=== PATIENT | female | born 1935 | race Caucasian/White ===

== ENCOUNTER → 2016-07-09 | Outpatient (CLI) | payer OTHER, MEDICARE ==
[~2016-07-09] MED LIST: ASPI81TA28 PO; CALCTAB7 PO; FOLI800T PO; LORA-741 PO; LOSA1TAB38 PO; SIMV-150 PO; TRAM-10 PO
== END | disposition home or self-care (01) ==
LOC: C.PATHSPEC 14:47
PROVIDERS: ATTEND Dentist Oral and Maxillofacial Surgery
DX: K13.79 Other lesions of oral mucosa (principal)

== ENCOUNTER → 2016-08-27 | Outpatient (CLI) | payer OTHER, MEDICARE ==
[~2016-08-27] MED LIST changes: +OPTIRAY 320 IV PRN
[2016-08-27 09:37] LABS: BLOOD UREA NITROGEN 27 mg/dl (7-18)
--- NOTE | 2016-08-27 10:45 | DIAGNOSTIC IMAGING REPORT ---
ABDOMEN AND PELVIS CT WITH IV AND ORAL CONTRAST CT DOSE: HISTORY: LUNG CANCER F/U TO HAVE LABS BEFORE CT FROM . TECHNIQUE: Multiaxial CT images of the abdomen and pelvis were performed following the use of intravenous and oral contrast. COMPARISON STUDY: Abdomen and pelvis CT 05/13/2016. FINDINGS: There is suture material again noted at the left lung base. This is only partially visualized. Levoscoliosis and degenerative changes within the lumbar spine. Left-sided postthoracotomy changes noted within the ribs. No suspicious lytic or blastic osseous lesions. The liver, gallbladder, pancreas, spleen, and adrenal glands are unremarkable. The kidneys enhance normally. No retroperitoneal lymphadenopathy. Mild bladder wall thickening is likely due to underdistention. The uterus and ovaries are unremarkable. Colonic diverticulosis. Mild sigmoid colon thickening is likely due to muscular hypertrophy. No evidence for bowel obstruction. Normal appendix. IMPRESSION: No evidence for metastatic disease within the abdomen or pelvis. Electronically signed by: Dexter Pacheco M.D. 08/27/2016 10:43 AM Dictated Date/Time: 08/27/2016 10:38 AM
--- NOTE | 2016-08-27 11:30 | DIAGNOSTIC IMAGING REPORT ---
CHEST CT WITH CONTRAST CT DOSE: 459.55 mGycm HISTORY: Lung carcinoma LUNG CANCER F/U TECHNIQUE: Multiaxial CT images of the chest were performed following the intravenous administration of contrast. COMPARISON: 05/13/2016 Findings: Slight progression in findings as compared to the prior exam. Multifocal masslike changes are again noted. Within the left lung, of the dominant process superior segment left lower lobe is unchanged. Poorly defined parenchymal changes left midlung as well as a groundglass opacity of the left perihilar region are considered similar. Fibrotic changes left lung base are similar. The right hemithoracic findings are perhaps minimally progressive. A bilobed density of the right upper lobe currently measures 2.4 cm at maximum increase in the prior study of 2.1 cm. The remaining findings are considered similar. Parenchymal findings right apex are similar as well with multifocal areas of irregular density unchanged. Atherosclerotic change thoracic aorta with moderate ectasia of the root of aorta is similar. No significant hilar or mediastinal adenopathy. Limited evaluation the upper abdomen remains stable. IMPRESSION: 1. General stability of the multifocal pulmonary masses compared to the prior study. 2. Slight increase in volume of a anterior right midlung density. 3. No additional significant new or interval changes are noted. Electronically signed by: Rudy Arteaga M.D. 08/27/2016 11:28 AM Dictated Date/Time: 08/27/2016 11:07 AM
== END | disposition home or self-care (01) ==
LOC: C.CTS 08:22
PROVIDERS: ATTEND Internal Medicine Hematology & Oncology
DX: C34.82 Malignant neoplasm of overlapping sites of left bronchus and lung (principal)

== ENCOUNTER → 2016-11-24 | Outpatient (CLI) | payer OTHER, MEDICARE ==
[~2016-11-24] MED LIST changes: -OPTIRAY 320 IV PRN
[2016-11-24 15:33] LABS: CHOLESTEROL/HDL RATIO 2.2
== END | disposition home or self-care (01) ==
LOC: C.LAB 11:48
PROVIDERS: ATTEND Internal Medicine
DX: E78.00 Pure hypercholesterolemia, unspecified (principal); C34.90 Malignant neoplasm of unspecified part of unspecified bronchus or lung

== ENCOUNTER → 2016-11-25 | Outpatient (CLI) | payer OTHER, MEDICARE ==
--- NOTE | 2016-11-25 11:11 | DIAGNOSTIC IMAGING REPORT ---
CHEST CT WITH CONTRAST CT DOSE: 454.00 mGy.cm HISTORY: Lung carcinoma [id number] LUNG CARCINOMA C34.82 TECHNIQUE: Multiaxial CT images of the chest were performed following the intravenous administration of contrast. COMPARISON: 08/27/2016 FINDINGS: Multiple pulmonary nodules as well as pleural-based densities previously described have remained generally stable. Subtle variation in configuration is present although overall widening factors are unchanged. There are no new or interval nodular findings. There is no significant mediastinal or hilar adenopathy. Degenerative changes of the thoracic spine persist. IMPRESSION: 1. Unchanged CT of the chest compared to the prior study. 2. Pulmonary nodules, pleural-based masses, and other incidental findings appear stable. Electronically signed by: Rudy Arteaga M.D. 11/25/2016 11:10 AM Dictated Date/Time: 11/25/2016 11:04 AM
--- NOTE | 2016-11-25 11:29 | DIAGNOSTIC IMAGING REPORT ---
CT SCAN OF THE ABDOMEN AND PELVIS WITH IV CONTRAST CLINICAL HISTORY: Lung cancer. COMPARISON STUDY: Prior abdominal CT scans, most recently dated 08/27/2016. TECHNIQUE: Following the IV administration of 94 cc of Optiray 320, CT scan of the abdomen and pelvis is performed from the lung bases to the proximal femora. Images are reviewed in the axial, sagittal, and coronal planes. IV contrast was administered without complication. Automated dose control exposure was utilized. FINDINGS: Lung bases: The tip of a central venous infusion port is noted at the cavoatrial junction. The heart is normal in size and without pericardial effusion. Suture material is seen at the left lung base. A 2.3 cm irregular lesion in the right middle lobe as seen on image #1. Additional subcentimeter foci of groundglass change are present in the right lower lobe. No pleural effusion is identified. Liver: The contrast-enhanced liver is normal in size, contour, and attenuation. There is no intrahepatic biliary ductal dilatation. The hepatic veins and portal veins are patent. Gallbladder: Unremarkable. Spleen: Normal in size and attenuation. Pancreas: Unremarkable. Adrenal glands: Unremarkable. Kidneys: The contrast enhanced kidneys are atrophic and without hydronephrosis. Bilateral parapelvic cysts are again noted. The kidneys enhance symmetrically. Abdominal vasculature: The abdominal aorta is normal in course and caliber noting advanced atherosclerotic calcification. A focal dissection is suggested within the infrarenal abdominal aorta on image #139. Bowel: The small bowel and colon are normal in course and caliber. There is advanced sigmoid diverticulosis without CT evidence of acute diverticulitis. The appendix is not identified. Peritoneum: There is no intraperitoneal free air or abdominal ascites. Lymphadenopathy: None. Pelvic viscera: The bladder, uterus, and adnexa are normal as visualized. Findings suggest pelvic floor prolapse. Skeletal structures: The skeletal structures are osteopenic. There is moderate lumbosacral spondylosis and scoliosis. No lytic or blastic lesions are seen. There are healed left-sided rib fractures. IMPRESSION: 1. There is no evidence of metastatic disease in the abdomen or pelvis. 2. Postoperative change is seen at the left lung base. 3. There are no acute infectious or inflammatory findings in the abdomen or pelvis. 4. Advanced sigmoid diverticulosis without CT evidence of acute diverticulitis. 5. A 2.3 cm irregular lesion in the right middle lobe is partially imaged. This was also seen on prior studies. See report of chest CT performed concurrently for detailed intrathoracic findings. 6. A focal dissection is suspected in the infrarenal abdominal aorta. 7. Additional changes as above. Electronically signed by: Adithya Eli M.D. 11/25/2016 11:28 AM Dictated Date/Time: 11/25/2016 11:19 AM
== END | disposition home or self-care (01) ==
LOC: C.CTS 10:22
PROVIDERS: ATTEND Internal Medicine Hematology & Oncology
DX: C34.82 Malignant neoplasm of overlapping sites of left bronchus and lung (principal)

== ENCOUNTER → 2017-02-24 | Outpatient (CLI) | payer OTHER, MEDICARE ==
[~2017-02-24] MED LIST changes: +OPTIRAY 320 IV PRN
--- NOTE | 2017-02-24 11:17 | DIAGNOSTIC IMAGING REPORT ---
ABD/PELVIS IV AND ORAL CONT CT DOSE: 441.98 mGy.cm HISTORY: Lung carcinoma. LUNG CA TECHNIQUE: Multiaxial CT images of the abdomen and pelvis were performed following the use of intravenous and oral contrast. A dose lowering technique was utilized adhering to the principles of ALARA. COMPARISON STUDY: 11/25/2016 FINDINGS: Minimal scattered fibrotic change at both lung bases. Components of this per history are postoperative and is considered stable. Liver is uniform in appearance. Gallbladder is negative for distention. Moderate atrophy of the kidneys is stable. No evidence for renal hydronephrosis. No significant abdominal pelvic or inguinal adenopathy. Chronic sigmoid diverticulosis. No evidence for acute diverticulitis. Nonobstructive bowel pattern. The small focal dissection present described is not apparent currently. Her considerable degenerative changes of the low thoracic as well as lumbar spine. No lytic or blastic process is appreciated. IMPRESSION: 1. No evidence for metastatic disease. 2. Chronic sigmoid diverticulosis with no evidence for diverticulitis. 3. Mild stable renal atrophy The above report was generated using voice recognition software. It may contain grammatical, syntax or spelling errors. Electronically signed by: Rudy Arteaga M.D. 02/24/2017 11:16 AM Dictated Date/Time: 02/24/2017 11:07 AM
--- NOTE | 2017-02-24 11:34 | DIAGNOSTIC IMAGING REPORT ---
CT SCAN OF THE CHEST WITH IV CONTRAST CLINICAL HISTORY: Lung cancer. COMPARISON STUDY: Prior chest CT scans dated 11/25/2016 and 08/02/2015. TECHNIQUE: Following the IV administration of 94 cc of Optiray 320, CT scan of the thorax was performed from the thoracic inlet to the upper abdomen. Images are reviewed in the axial, sagittal, and coronal planes. IV contrast was administered without complication. A dose lowering technique was utilized adhering to the principles of ALARA. FINDINGS: Thyroid: Imaged portions of the thyroid gland are normal in size and attenuation. Subcentimeter low-attenuation thyroid nodules are identified. Thoracic aorta: There is atherosclerotic calcification of the thoracic aorta, which is normal in caliber and demonstrates bovine variant arch anatomy. No dissection is seen. A left subclavian central venous infusion port is in place. Pulmonary vasculature: The pulmonary trunk is normal in caliber. There are no filling defects identified in the central pulmonary vessels to indicate pulmonary embolus. Note that this examination was not protocoled for evaluation of the pulmonary arteries. Heart: The heart is top normal in size and without pericardial effusion. There are coronary artery calcifications. Lungs and pleural spaces: Mild emphysema and biapical scarring is observed. The trachea and central airways are patent. Trace pleural fluid is seen at the left lung base. There is postoperative change in the left upper and left lower lobes. Numerous bilateral pulmonary lesions have not significant change from 11/25/2016. A pleural-based lesion in the left upper lobe on image #68 measures 3.8 x 1.9 cm. A 4.2 cm lesion in the left upper lobe lung the major fissure is single image #111 and demonstrates foci of central necrosis. The largest lesion in the right lung is located in the upper lobe anteriorly on image #108 and measures 2.7 cm. Numerous (greater than 10) additional irregular pulmonary lesions are scattered throughout both lungs. Mediastinum: There is no mediastinal lymphadenopathy. Ashley: Clear. Axillae: There is no axillary lymphadenopathy. Upper abdomen: The partially visualized kidneys demonstrate cortical atrophy. No adrenal lesion is seen. Skeletal structures: The skeletal structures are osteopenic. There is moderate degenerative change as well as scoliosis noted in the spine. No lytic or blastic bony lesions are seen. IMPRESSION: 1. Overall no significant change from 11/25/2016. 2. Numerous pulmonary lesions are again seen as detailed above. 3. Mild emphysema. 4. No mediastinal lymphadenopathy is identified. 5. Additional findings as above. Electronically signed by: Adithya Eli M.D. 02/24/2017 11:33 AM Dictated Date/Time: 02/24/2017 11:26 AM
== END | disposition home or self-care (01) ==
LOC: C.CTS 10:23
PROVIDERS: ATTEND Internal Medicine Hematology & Oncology
DX: C34.82 Malignant neoplasm of overlapping sites of left bronchus and lung (principal); K57.30 Diverticulosis of large intestine without perforation or abscess without bleeding; N26.1 Atrophy of kidney (terminal); R91.8 Other nonspecific abnormal finding of lung field; J43.9 Emphysema, unspecified

== ENCOUNTER → 2017-06-09 | Outpatient (CLI) | payer OTHER, MEDICARE ==
--- NOTE | 2017-06-09 12:48 | DIAGNOSTIC IMAGING REPORT ---
ABD/PELVIS IV CONTRAST ONLY CT DOSE: HISTORY: Lung carcinoma LUNG CA TECHNIQUE: Multiaxial CT images of the abdomen and pelvis were performed following the use of intravenous contrast. A dose lowering technique was utilized adhering to the principles of ALARA. COMPARISON STUDY: 02/24/2017 FINDINGS: Lung bases are considered clear. Minimal linear scarring and chronic granulomatous-type change left base is unaltered. Mild fatty infiltration of liver stable from the prior exam. Cortical scarring of the kidneys considered stable. No evidence for hydronephrosis. Atherosclerotic change of the abdominal and pelvic arterial vasculature is stable. No significant abdominal or pelvic adenopathy. Bowel pattern is nonobstructive. Mild chronic diverticulosis of the sigmoid considered stable. No evidence for acute diverticulitis. Bladder is midline. Uterus is anteflexed. Degenerative changes of the osseous structures are stable throughout. IMPRESSION: 1. No evidence metastatic disease. 2. Scattered chronic changes unaltered from the prior study. 3. No evidence for new interval or progressive process. The above report was generated using voice recognition software. It may contain grammatical, syntax or spelling errors. Electronically signed by: Rudy Arteaga M.D. 06/09/2017 12:47 PM Dictated Date/Time: 06/09/2017 12:41 PM
--- NOTE | 2017-06-09 12:53 | DIAGNOSTIC IMAGING REPORT ---
CT OF THE CHEST WITH IV CONTRAST CLINICAL HISTORY: LUNG CA COMPARISON STUDY: 02/24/2017 TECHNIQUE: Following the IV administration of 94 mL of Optiray-320, CT of the thorax was performed from the thoracic inlet to the lung bases. Images are reviewed in the axial, sagittal, and coronal planes. IV contrast was administered without complication. A dose lowering technique was utilized adhering to the principles of ALARA. CT DOSE: 472.11 mGy.cm FINDINGS: Thyroid: There are bilateral subcentimeter thyroid nodules. Thoracic aorta: The thoracic aorta is normal in course and caliber, noting standard 3-vessel arch anatomy. No aneurysm or dissection is seen. Pulmonary vasculature: The pulmonary trunk is normal in caliber. There are no central filling defects identified to suggest pulmonary embolus. Note that this examination was not protocoled for the evaluation of pulmonary emboli. HEART: The heart is normal in size and configuration, without pericardial effusion. Lungs and pleural spaces: There are no pleural effusions. Postsurgical changes are present within the left lower lobe and left upper lobe. There are multiple bilateral solid and groundglass pulmonary nodules. Within the left lower lobe, there is an enlarging 17 mm nodule at the level of a surgical scar. Within the lingula there is a stable 41 mm mass. Within the left upper lobe there is a stable 38 mm mass. Within the right upper lobe there has been slight interval increase in the size of a 34 mm mass. Within the right middle lobe there is equivocal minimal increase in the size of a 22 mm lesion within the right lower lobe there is a stable 2 cm groundglass opacity. Mediastinum: There is no mediastinal lymphadenopathy. Ashley: There is no evidence of pathologic hilar adenopathy Axilla: Clear. Upper abdomen: Partially visualized upper abdominal viscera is within normal limits. Skeletal structures: There are no lytic or blastic osseous lesions. IMPRESSION: 1. Multiple bilateral solid and groundglass radiopacities, stable to mildly increased in size when compared the preceding study 2. No evidence of pathologic adenopathy Electronically signed by: Juan Carlos Emery M.D. 06/09/2017 12:51 PM Dictated Date/Time: 06/09/2017 12:43 PM
== END | disposition home or self-care (01) ==
LOC: C.CTS 11:21
PROVIDERS: ATTEND Internal Medicine Hematology & Oncology
DX: C34.82 Malignant neoplasm of overlapping sites of left bronchus and lung (principal)

== ENCOUNTER → 2017-09-08 | Outpatient (CLI) | payer OTHER, MEDICARE ==
[~2017-09-08] MED LIST changes: -OPTIRAY 320 IV PRN
== END | disposition home or self-care (01) ==
LOC: C.LAB 16:07
PROVIDERS: ATTEND Internal Medicine
DX: E78.00 Pure hypercholesterolemia, unspecified (principal); I10 Essential (primary) hypertension

== ENCOUNTER → 2017-10-26 | Outpatient (CLI) | payer OTHER, MEDICARE ==
[2017-10-26 14:44] LABS: BASO % 0.8 %; BASO ABS # 0.06 K/uL (0-0.2); EOS % 2.4 %; EOS ABS # 0.17 K/uL (0-0.5); HEMATOCRIT 34.9 % (37-47); HEMOGLOBIN 11.1 g/dL (12.0-16.0); IG# 0.01 K/uL (0.00-0.02); LYMPH % 25.1 %; LYMPH ABS # 1.78 K/uL (1.2-3.4); MEAN CORPUSCULAR HEMOGLOBIN 28.3 pg (25-34); MEAN CORPUSCULAR HGB CONC 31.8 g/dl (32-36); MEAN PLATELET VOLUME 10.2 fL (7.4-10.4); MONO % 5.6 %; NEUT ABS # 4.68 K/uL (1.4-6.5); PLATELET COUNT 315 K/uL (130-400); RED CELL DISTRIBUTION WIDTH CV 13.6 % (11.5-14.5); RED CELL DISTRIBUTION WIDTH SD 44.4 fL (36.4-46.3)
[2017-10-26 15:01] LABS: ALBUMIN 3.4 gm/dl (3.4-5.0); ALT/SGPT 19 U/L (12-78); AST/SGOT 21 U/L (15-37); BLOOD UREA NITROGEN 38 mg/dl (7-18); CALCIUM 9.6 mg/dl (8.5-10.1); CARBON DIOXIDE 29 mmol/L (21-32); GLUCOSE 147 mg/dl (70-99); POTASSIUM 4.1 mmol/L (3.5-5.1); SODIUM 139 mmol/L (136-145)
[2017-10-26 15:04] LABS: ALKALINE PHOSPHATASE 60 U/L (45-117); TOTAL PROTEIN 7.6 gm/dl (6.4-8.2)
== END | disposition home or self-care (01) ==
LOC: C.LABSPEC 14:11
PROVIDERS: ATTEND Internal Medicine Hematology & Oncology
DX: C34.82 Malignant neoplasm of overlapping sites of left bronchus and lung (principal)

== ENCOUNTER → 2018-01-04 | Outpatient (CLI) | payer OTHER, MEDICARE ==
[2018-01-04 15:10] LABS: BASO % 0.7 %; BASO ABS # 0.05 K/uL (0-0.2); EOS % 2.4 %; EOS ABS # 0.18 K/uL (0-0.5); HEMATOCRIT 34.7 % (37-47); HEMOGLOBIN 10.9 g/dL (12.0-16.0); IG# 0.02 K/uL (0.00-0.02); LYMPH % 22.9 %; LYMPH ABS # 1.71 K/uL (1.2-3.4); MEAN CELL VOLUME 87.8 fL (80-100); MEAN CORPUSCULAR HEMOGLOBIN 27.6 pg (25-34); MEAN CORPUSCULAR HGB CONC 31.4 g/dl (32-36); MEAN PLATELET VOLUME 10.4 fL (7.4-10.4); MONO % 7.9 %; MONO ABS # 0.59 K/uL (0.11-0.59); NEUT % 65.8 %; NEUT ABS # 4.93 K/uL (1.4-6.5); PLATELET COUNT 323 K/uL (130-400); RED CELL DISTRIBUTION WIDTH CV 13.6 % (11.5-14.5); RED CELL DISTRIBUTION WIDTH SD 43.8 fL (36.4-46.3); WHITE BLOOD COUNT 7.48 K/uL (4.8-10.8)
[2018-01-04 15:30] LABS: ALBUMIN 3.1 gm/dl (3.4-5.0); ALT/SGPT 17 U/L (12-78); AST/SGOT 17 U/L (15-37); BLOOD UREA NITROGEN 32 mg/dl (7-18); CALCIUM 8.6 mg/dl (8.5-10.1); CARBON DIOXIDE 25 mmol/L (21-32); CREATININE 1.17 mg/dl (0.60-1.20); GLUCOSE 87 mg/dl (70-99); POTASSIUM 4.2 mmol/L (3.5-5.1); SODIUM 136 mmol/L (136-145)
[2018-01-04 15:38] LABS: ALKALINE PHOSPHATASE 63 U/L (45-117); TOTAL PROTEIN 7.2 gm/dl (6.4-8.2)
== END | disposition home or self-care (01) ==
LOC: C.LABSPEC 14:13
PROVIDERS: ATTEND Internal Medicine Hematology & Oncology
DX: C34.82 Malignant neoplasm of overlapping sites of left bronchus and lung (principal)

== ENCOUNTER → 2018-01-26 | Outpatient (CLI) | payer OTHER, MEDICARE ==
[~2018-01-26] MED LIST changes: +OPTIRAY 320 IV PRN
--- NOTE | 2018-01-26 12:39 | DIAGNOSTIC IMAGING REPORT ---
CT ABD/PELVIS IV AND ORAL CONT CLINICAL HISTORY: LUNG CA COMPARISON STUDY: 11/03/2017 TECHNIQUE: Following the IV administration of 91 mL of Optiray-320, CT scan of the abdomen and pelvis was performed from the lung bases to the proximal femurs. Images are reviewed in the axial, sagittal, and coronal planes. IV contrast was administered without complication. A dose lowering technique was utilized adhering to the principles of ALARA. CT DOSE: FINDINGS: Lower chest: The heart is normal in size and configuration, without pericardial effusion. The lung bases and pleural spaces are clear. Liver: The contrast-enhanced liver is normal in size, contour, and attenuation. There is no intrahepatic biliary ductal dilatation. The hepatic veins and portal veins are patent. Gallbladder: Unremarkable. Spleen: Normal in size and attenuation. Pancreas: Unremarkable. Adrenal glands: Unremarkable. Kidneys: There is symmetric renal cortical enhancement. The kidneys are normal in size without hydronephrosis. Bowel: There are no transition zones indicate bowel obstruction. There is sigmoid diverticulosis. There is no acute diverticulitis. There is no evidence of acute appendicitis. Peritoneum: There is no intraperitoneal free air or abdominal ascites. Vasculature: The abdominal aorta is normal in course and caliber. Adenopathy: None. Pelvic viscera: The bladder, and pelvic viscera are unremarkable. Skeletal structures: No destructive osseous lesions are seen. IMPRESSION: No evidence of metastatic disease within the abdomen or pelvis. Electronically signed by: Juan Carlos Emery M.D. 01/26/2018 12:37 PM Dictated Date/Time: 01/26/2018 12:34 PM
--- NOTE | 2018-01-26 13:20 | DIAGNOSTIC IMAGING REPORT ---
CT OF THE CHEST WITH IV CONTRAST CLINICAL HISTORY: Lung cancer. COMPARISON STUDY: Chest CT November 03, 2017. TECHNIQUE: Following IV administration of 91 mL of Optiray-320, helical axial images of the chest were obtained. Sagittal and coronal reconstructions were viewed as well as maximal intensity projections on an independent 3-D workstation. A dose lowering technique was utilized adhering to the principles of ALARA. CT DOSE: 522.47 mGy.cm FINDINGS: No pathologically enlarged thoracic lymph nodes are present. Left subclavian [id number] is in place. A few subcentimeter thyroid nodules are noted. The heart is mildly enlarged. There is no pericardial effusion. No suspicious osseous lesion within the bony thorax is noted. The abdomen and pelvis will be reported separate. Numerous solid, subsolid and groundglass nodules are noted. These are similar to exam of November 03, 2017. A left upper lobe lesion shown on image 60 of 276 has slightly decreased in size. This now measures 3.7 cm. It previously measured 3.8 cm. Postoperative findings within the lungs are noted. A left upper lobe lesion shown image 102 measures 4.2 cm. This is similar to previous exam. A 1.4 cm left lower lobe lesion shown image 122 has slightly decreased in size. It previously measured 1.5 cm. A right middle lobe lesion shown on image 154 measures 2 cm. It previously measured approximately 2 cm as well. A right upper lobe lesion shown image 104 measures 3.6 cm. This is similar to previous exam. An additional right upper lobe lesion shown image 65 measures 1.9 cm. It previously measured 2.1 cm. IMPRESSION: Overall, minimal change since previous exam with redemonstration of numerous solid and subsolid pulmonary masses and nodules consistent with multifocal malignancy.. A few lesions have slightly decreased in size since chest CT of November 03, 2017. No evidence for significant disease progression. Electronically signed by: Jeff Rivera M.D. 01/26/2018 1:19 PM Dictated Date/Time: 01/26/2018 1:01 PM
== END | disposition home or self-care (01) ==
LOC: C.CTS 11:23
PROVIDERS: ATTEND Internal Medicine Hematology & Oncology
DX: C34.82 Malignant neoplasm of overlapping sites of left bronchus and lung (principal)

== ENCOUNTER 2019-06-21 11:24 | Inpatient (IN) ==
[2019-06-21] MEDS: SODIUM CHLORIDE 0.9% 1000ML 1,000 ML IV SCH ×2 (12:45→20:59)
[2019-06-21 12:49] LABS: Basophils # (auto) 0.02 K/uL (0-0.2); Basophils % (auto) 0.1 %; Eosinophils # (auto) 0.02 K/uL (0-0.5); Eosinophils % (auto) 0.1 %; Hematocrit (blood only) 31.4 % (37-47); Hemoglobin 9.9 g/dL (12.0-16.0); Immature Granulocytes # (auto) 0.07 K/uL (0.00-0.02); Immature Granulocytes % (auto) 0.4 %; Lymphocytes # (auto) 1.02 K/uL (1.2-3.4); Lymphocytes % (auto) 5.6 %; Mean Corpuscular Hemoglobin 26.3 pg (25-34); Mean Corpuscular Hgb Conc 31.5 g/dL (32-36); Mean Corpuscular Volume 83.3 fL (80-100); Mean Platelet Volume 8.6 fL (7.4-10.4); Monocytes # (auto) 1.14 K/uL (0.11-0.59); Monocytes % (auto) 6.3 %; Neutrophils # (auto) 15.97 K/uL (1.4-6.5); Neutrophils % (auto) 87.5 %; Platelet Count 561 K/uL (130-400); RDW Standard Deviation 61.1 fL (36.4-46.3); Red Blood Count 3.77 M/uL (4.2-5.4); White Blood Count 18.24 K/uL (4.8-10.8)
[2019-06-21 13:04] LABS: Influenza A virus by PCR Neg for Influ A (Neg); Influenza B virus by PCR Neg for Influ B (Neg)
[2019-06-21 13:08] LABS: Albumin Level 1.9 gm/dl (3.4-5.0); Aspartate Aminotransferase 27 U/L (15-37); BUN Creatinine Ratio 20.9 (10-20); Blood Urea Nitrogen 24 mg/dl (7-18); Calcium 9.4 mg/dl (8.5-10.1); Carbon Dioxide 28 mmol/L (21-32); Chloride 96 mmol/L (98-107); Glucose 119 mg/dl (70-99); Lipase 230 U/L (73-393); Magnesium 1.9 mg/dl (1.8-2.4); Potassium 4.3 mmol/L (3.5-5.1); Sodium 128 mmol/L (136-145)
[2019-06-21 13:19] LABS: Alanine Aminotransferase 23 U/L (12-78); Albumin Globulin Ratio 0.4 (0.9-2); Alkaline Phosphatase 103 U/L (45-117); Bilirubin,Total 0.4 mg/dl (0.2-1); NT Pro B Type Natriuretic Pept 1769 pg/ml (0-1800); Total Protein 6.9 gm/dl (6.4-8.2); Troponin I < 0.015 ng/ml (0-0.045)
[2019-06-21 13:28] LABS: Rouleaux 1+
[2019-06-21] MEDS ORDERED: OPTIRAY 320 125ml IV PRN (13:54)
[2019-06-21 14:18] LABS: Appearance Urine Clear (Clear); Bacteria Urine Automated Negative (Negative); Bilirubin Urine Negative (Negative); Blood Urine Negative (Negative); Cast Urine Automated 0 /lpf (0-5); Color Urine Yellow; Glucose Urine UA 1+ (Negative); Ketones Urine Negative (Negative); Leukocyte Esterase Urine Trace (Negative); Nitrite Urine Negative (Negative); Protein Urine Negative (Negative); RBC Urine Automated 0-4 /hpf (0-4); Urobilinogen Urine Negative (Negative); pH Urine 7.5 (4.5-7.5)
--- NOTE | 2019-06-21 14:18 | CT Scan Report ---
CT angio chest PE protocol CT DOSE: 242.30 mGy.cm HISTORY: Chest pain PE TECHNIQUE: Multiaxial CT images of the chest were performed following the intravenous administration of contrast to evaluate the pulmonary arteries. Maximal intensity projection images were also obtaine d. A dose lowering technique was utilized adhering to the principles of ALARA. COMPARISON STUDY: 06/15/2018 FINDINGS: The thoracic aorta shows mild atherosclerotic change. There is no evidence for aneurysm or dissection. The pulmonary vasculature enhances appropriately. There are no significant filling defects. There are findings of progressive masslike changes in the right as well as left hemithorax. There is a progressive left pleural effusion. His appearance consistent with that of progressive neoplastic change. The largest consolidative process left mid lung has increased from 5.4 cm to 7.0 cm. Multiple additio nal parenchymal nodules are identified bilaterally. Vertebral body stature of the thoracic spine is unremarkable. There is considerable degenerative disc changes throughout. There is a sclerotic focus involving the anterior margin of the left fourth rib. This was not present previously. IMPRESSION: 1. Study is negative for pulmonary embolus. 2. Progressive bilateral masslike processes throughout both hemithoraces. 3. Progressive left pleural effusion. 4. Probable developing bony metastatic change. ACT 112: Negative or not required by law. The above report was generated using voice recognition software. It may contain grammatical, syntax or spelling errors. Electronically signed by: Rudy Arteaga M.D. 06/21/2019 2:16 PM
--- NOTE | 2019-06-21 14:40 | Electrocardiogram Report ---
Test Reason : Blood Pressure : / mmHG Vent. Rate : 088 BPM Atrial Rate : 088 BPM P-R Int : 132 ms QRS Dur : 074 ms QT Int : 332 ms P-R-T Axes : 059 048 044 degrees QTc Int : 401 ms Poor data quality, interpretation may be adversely affected Normal sinus rhythm Poor R wave progression, consider anterior IN vs. lead placement vs. LVH Abnormal ECG When compared with ECG of 22-MAR-2016 16:26, Loss of voltage in Lead V3 (likely lead placement) Otherwise no significant change Confirmed by Parth Baxter ([id number]) on 06/21/2019 2:40:19 PM Referred By: REFERRED SELF Confirmed By:Parth Baxter
[2019-06-21] MEDS ORDERED: CEFEPIME 20 ML IV STA (14:54)
[2019-06-21] MEDS ORDERED: VANCOMYCIN HCL 1,250 MG in SODIUM CHLORIDE 0.9% 250 ML IV STA (14:55)
--- NOTE | 2019-06-21 17:19 | History & Physical Report ---
Date of Service June 21, 2019 Assessment & Plan (1) Pneumonia: 83-year-old female with a past medical history of metastatic lung cancer, hyperlipidemia, hypertension presents with worsening shortness of breath over the past week. On arrival, she was tachycardic, tachypneic and with a white count of 18.24 and a pro-Liu of 18.89. On CT she was found to have left superior lobe obstructive process and suspected pneumonia, as well as an associated left pleural effusion. On admission, the patient meets sepsis criteria per sirs, but she was in no distress--afebrile and was satting well on room air. Postobstructive process, left superior lobe pneumonia likely In the setting of metastatic lung cancer, with associated pleural effusion Consult thoracic surgery, Dr. Vargas contacted Keep patient n.p.o. after midnight Continue antibioticscefepime, vancomycin. Obtain sputum culture, follow blood cultures. History of non-small carcinoma lung, stage IV Currently not undergoing treatment, but is followed by oncology on Q2 month basis. We will consult them. Hyponatremia Consider SIADH in setting of lung cancer, obtain urine/serum osmolarity, urine sodium Fluid restrict Chronic anemia, likely 2/2 chronic disease state No signs or symptoms of bleeding Patient is on iron at home Continue to trend CBC Hypertension Hold losartan Hyperlipidemia Continue simvastatin DVT prophylaxis SCDs, hold chemical prophylaxis for possible procedure FEN Fluid restrict, heart healthy diet, n.p.o. after midnight CODE STATUS DNR/DNI (2) Non-small cell carcinoma of lung, stage 4: (3) Hypertension: (4) Hypercholesterolemia: (5) Lung cancer: (6) Dyspnea: (7) Pleural effusion: History of Present Illness Primary Care Provider: Malachi Caldwell MD 83-year-old female with a past medical history of metastatic lung cancer, hyperlipidemia, hypertension presents with worsening shortness of breath over the past week. She states that her symptoms started with a productive cough last week. She was treated for 6 days for a upper respiratory infection. She denied any fevers, chills or chest pain. She describes feeling more fatigued the past 2 months.She denies any hemoptysis. She is seen by her oncologist, Dr. Jurado, but has foregone further treatment for her metastatic cancer. Allergies Allergy/AdvReac Type Severity Reaction Status Date / Time [place] Inhibitors Allergy Mild COUGH Verified 06/21/19 11:47 erythromycin base Allergy Mild NAUSEA Verified 06/21/19 11:47 amoxicillin [From Augmentin] Allergy cheek and Verified 06/21/19 14:53 ankle swelling clavulanic acid Allergy cheek and Verified 06/21/19 11:47 [From Augmentin] ankle swelling Home Medications Home Medications Medication Instructions Recorded Confirmed Type acetaminophen 500 mg tablet 500 mg PO QID tab 03/18/19 06/21/19 History calcium carbonate 600 mg (1,500 1 tab PO BID tab 03/18/19 06/21/19 History mg)-vitamin D3 200 unit tablet folic acid 800 mcg tablet 0.8 mg PO HS tab 03/18/19 06/21/19 History losartan 100 mg tablet 100 mg PO QAM #90 tab 03/18/19 06/21/19 History simvastatin 10 mg tablet 10 mg PO HS #90 tab 03/18/19 06/21/19 History Cbd Salve 1 applic TOPICAL QAM 06/21/19 06/21/19 History ferrous sulfate [iron] 325 mg PO QDL 06/21/19 06/21/19 History Past Med/Surg History Medical History Hypercholesterolemia (Acute) Hypertension (Acute) Lumbar radiculopathy (Acute) Non-small cell carcinoma of lung, stage 4 (Acute) Surgical History History of lung biopsy Family History Father Myocardial infarction Mother Liver cancer Uterine cancer Social History Preferred Language: Argentine Communication Ability: Effective Visual Impairment: No Limitations Hearing Ability: Normal Morgue Attendant Required: No Beliefs That Will Affect Care: None marital status: Current Living Situation: Spouse current occupational status: retired Other Information That Helps Us Care for You: No Feels Safe at Home: Yes Safety Concerns: Feels Safe At This Time Smoking Status: Former smoker Hx Alcohol Use: Yes Hx Substance Use: No Physical Activity Frequency: Daily Seatbelt Use: always Review of Systems Constitutional: no fever, no chills, no sweats and no fatigue Ear, Nose, Mouth, Throat: + post nasal drip; no ear pain and no sore throat Respiratory: + cough, + dyspnea and + dyspnea on exertion Cardiovascular: + edema (mild bl LE); no chest pain and no palpitations Gastrointestinal: no abdominal pain, no vomiting, no diarrhea/loose stools and no blood in stools Genitourinary: no dysuria, no urinary hesitancy and no hematuria Physical Exam Constitutional: well developed; no acute distress Eyes: PERRL, conjunctivae normal, anicteric sclerae ENMT: external ear and nose normal, oropharynx normal Neck: trachea midline, no thyromegaly Respiratory: normal respiratory effort; no respiratory distress, no labored breathing, no retractions and does not use accessory muscles Auscultation: + diminished lung sounds (Lung bases); no crackles, no rales, no rhonchi and no wheezes Cardiovascular: RRR, no murmur, no edema Gastrointestinal (Abdomen): normal bowel sounds, soft, nontender, no hepatosplenomegaly Musculoskeletal: no cyanosis or clubbing, extremities motor strength 5/5 Skin: no rashes, warm and dry Neurologic: PERRL, EOMI, accommodation nl, no face palsy, no dysarthria Psychiatric: A+Ox3, euthymic affect Results & Data Vital Signs (Past 12 Hours) Vital Signs Temp Pulse Resp BP Pulse Ox 06/21/19 16:31 90 19 97 06/21/19 16:30 92 H 20 173/78 H 97 06/21/19 16:01 90 18 96 06/21/19 16:00 88 16 165/73 H 97 06/21/19 15:31 90 17 96 06/21/19 15:30 90 18 161/93 H 97 06/21/19 15:01 94 H 25 H 97 06/21/19 15:00 94 H 25 H 156/106 H 95 06/21/19 14:31 92 H 21 98 06/21/19 14:30 90 20 156/76 H 96 06/21/19 14:01 94 H 24 06/21/19 13:30 137/104 H 06/21/19 13:01 87 17 95 06/21/19 13:00 88 19 143/71 H 96 06/21/19 12:31 91 H 18 97 06/21/19 12:30 90 20 139/74 96 06/21/19 12:01 103 H 22 96 06/21/19 12:00 96 H 18 140/75 97 06/21/19 11:33 36.6 C 110 H 18 161/75 H 98 06/21/19 11:30 108 H 16 161/75 H 98 Code Status & VTE Plan Code Status DNR/DNI VTE Prophylaxis Plan VTE Prophylaxis will be ordered: Yes Supervising Physician Co-Signing Physician Notes I personally saw and examined the patient. I verified all zhou points and agree with Resident Physician Dr David Chavez with the following exceptions and/or additions: 83 year old female with known metastatic lung adenocarcinoma having forgone further treatment due to previous bad reactions to chemotherapy A/P Post obstructive community acquired pneumonia - shortness of breath may just be due to progression of her disease however her procalcitonin is highly positive, she has had a cough for the past week and given obstruction she is high risk of pneumonia. Continue Vancomycin + cefepime. Will consult thoracic surgery (changed to routine). Metastatic lung adenocarcinoma - concerning findings for progression with mets to bone. Chronic low back pain but no new pains noted by patient however she would likley benefit from bisphosphonate/denosumab therapy in the future therefore will get vitamin D level for the morning and consider consulting palliative care once oncology have seen her. Resident Activity Tracking Resident Involvement: Resident Care Provided Care Provided: Adult Hospital Medicine (1) Dyspnea Dyspnea type: unspecified Qualified Code(s): R06.00 - Dyspnea, unspecified (2) Lung cancer Laterality: right Lung location: middle lobe of lung Qualified Code(s): C34.2 - Malignant neoplasm of middle lobe, bronchus or lung (3) Pneumonia Laterality: right Lung location: middle lobe of lung Pneumonia type: due to unspecified organism Qualified Code(s): J18.9 - Pneumonia, unspecified organism
[2019-06-21] MEDS ORDERED: VANCOMYCIN CONSULT ACTIVE PRN ×2 (19:21)
[2019-06-21] MEDS ORDERED: ONDANSETRON INJ 2 MG/ML 2 ML VIAL IV PRN (19:21)
[2019-06-21] MEDS ORDERED: ACETAMINOPHEN 325 MG TAB PO PRN (19:21)
[2019-06-21 20:19] LABS: BUN Creatinine Ratio 20.8 (10-20); Calcium 9.7 mg/dl (8.5-10.1); Creatinine Clr Calc Pharmacy 29.5 ml/min; Est GFR (African American) 54.4; Est GFR (Non-African American) 46.9; Potassium 4.9 mmol/L (3.5-5.1)
--- NOTE | 2019-06-21 21:24 | Pharmacy Report ---
Pharmacy Abx Dose Short Note - Date of Service June 21, 2019 - Assessment & Plan Assessment 83 year old F presented with worsening shortness of breath ordered empiric vancomycin and cefepime IV for treatment of pneumonia, postobstructive process. Patient with history of metastatic lung cancer - not currently on treatment. Plan Vancomycin * 1250 mg IV x 1 given in ED, then 750 mg IV (14 mg/kg) IV every 24 hours * Goal trough level: ~15 mcg/mL * Trough level will be ordered with ongoing therapy * MRSA nasal swab ordered to assist in antibiotic de-escalation Cefepime (not a pharm consult) * target dose of 2000 mg IV q8h * reduced to 2000 mg IV q24h for crcl 11-29 ml/min Pharmacy will continue to follow and will adjust dose/frequency as necessary. Thank you.
[2019-06-21] MEDS: SIMVASTATIN 10 MG TAB PO SCH (21:33)
[2019-06-21] MEDS ORDERED: HYDROCODONE/HOMATROPINE SYRUP 5MG/1.5MG 5ML UDP PO PRN (21:36)
[2019-06-22] MEDS ORDERED: CEFEPIME 2,000 MG in SYRINGE 7.5 ML IV SCH
[2019-06-22 06:59] LABS: Basophils # (auto) 0.04 K/uL (0-0.2); Basophils % (auto) 0.2 %; Eosinophils # (auto) 0.05 K/uL (0-0.5); Eosinophils % (auto) 0.2 %; Hematocrit (blood only) 31.7 % (37-47); Hemoglobin 9.9 g/dL (12.0-16.0); Immature Granulocytes % (auto) 0.4 %; Lymphocytes # (auto) 2.01 K/uL (1.2-3.4); Lymphocytes % (auto) 8.6 %; Mean Corpuscular Hemoglobin 26.6 pg (25-34); Mean Corpuscular Hgb Conc 31.2 g/dL (32-36); Mean Corpuscular Volume 85.2 fL (80-100); Mean Platelet Volume 8.9 fL (7.4-10.4); Monocytes % (auto) 6.8 %; Neutrophils # (auto) 19.59 K/uL (1.4-6.5); Neutrophils % (auto) 83.8 %; Platelet Count 698 K/uL (130-400); RDW Coefficient of Variation 20.4 % (11.5-14.5); RDW Standard Deviation 63.5 fL (36.4-46.3); Red Blood Count 3.72 M/uL (4.2-5.4); White Blood Count 23.39 K/uL (4.8-10.8)
[2019-06-22 07:31] LABS: Toxic Vacuolation 1+
[2019-06-22 07:34] LABS: BUN Creatinine Ratio 18.7 (10-20); Calcium 9.5 mg/dl (8.5-10.1); Creatinine Clr Calc Pharmacy 26.5 ml/min; Est GFR (African American) 52.1; Est GFR (Non-African American) 44.9; Potassium 4.5 mmol/L (3.5-5.1)
[2019-06-22 07:54] LABS: Anisocytosis Present
--- NOTE | 2019-06-22 09:08 | Consultation Report ---
DATE OF CONSULTATION: 06/22/2019 REASON FOR CONSULTATION: End-stage metastatic nonsmall cell lung cancer admitted for left upper lobe pneumonia. HISTORY OF PRESENT ILLNESS: Mallory is a very pleasant 83-year-old female patient, well known to [facility], currently under Dr. Jurado's care for metastatic nonsmall cell lung cancer. The patient was originally diagnosed back in 2015, has been heavily pretreated, most recently had received Taxotere, which was amazingly about a year ago. She had previously received a year's worth of Opdivo which Mallory claim she tolerated quite well. She was given carboplatin and pemetrexed previously as well. Mallory readily admits has been poorly tolerant of cytotoxic chemotherapy, but again did relatively well on the immune therapy until disease progression. She last saw Dr. Jurado on 05/23/2019 and where he was actively considering alternative salvage therapy. Over the past several weeks, she has been in steady clinical decline, manifested by asthenia, fatigue and subsequently shortness of breath with productive cough over the past week or so. She was treated for an upper respiratory infection with antibiotics. Specifically, I asked Mallory where she is regarding further therapy and made it clear to me that she does not wish to have any further salvage treatment for her terminal disease. Dr. Vargas is currently on consult proposing chest tube placement for drainage. She readily admits as of late her appetite has waned and she is losing weight. Unfortunately, she has no active pain issues. PAST MEDICAL HISTORY: Again, significant for metastatic nonsmall cell lung cancer, originally diagnosed in July 2015, hypercholesterolemia, hypertension and lumbar radiculopathy. PAST SURGICAL HISTORY: Lung biopsy. MEDICATIONS: Losartan 100 mg p.o. daily, simvastatin 10 mg p.o. daily, ferrous sulfate 325 mg p.o. daily, folic acid 0.8 mg p.o. at bedtime, calcium carbonate 1 tablet p.o. b.i.d., and she uses Tylenol as needed. ALLERGIES: [place] INHIBITORS, ERYTHROMYCIN, AMOXICILLIN AND AUGMENTIN. SOCIAL HISTORY: The patient lives with her spouse. She is currently retired. She is a reformed smoker. Negative for illicit drugs, positive for occasional alcohol consumption. FAMILY HISTORY: Father suffered myocardial infarction. Her mother succumbed to a uterine and liver cancer. REVIEW OF SYSTEMS: As per HPI, most notably for steady clinical decline asthenia, anorexia, weight loss, shortness of breath and dyspnea on exertion. She denied any preceding fevers or chills. SKIN: No rashes or lesions. No history of dermatoses. HEENT: Negative for headaches, lightheadedness or dizziness. No acute visual or hearing deficits. No sinus symptoms, sore throat or dysphagia. LYMPH: No history of lymphoproliferative disease. CARDIAC: No history of coronary artery disease. No current angina or palpitations. PULMONARY: Positive for left pleural effusion, shortness of breath, dyspnea on exertion. Positive for semi-productive cough. She denies hemoptysis. GASTROINTESTINAL: Negative for abdominal pain, nausea, vomiting, diarrhea or constipation, hematochezia or melena stools. GENITOURINARY: No hematuria, dysuria, urinary incontinence. MUSCULOSKELETAL: She has chronic back pain. No focal bony discomfort. No focal muscle weakness. ENDOCRINE: Negative for diabetes or thyroid disease. NEUROLOGIC: Negative for seizures, strokes or migraine headache. HEMATOLOGIC: Positive for leukocytosis and anemia, reactive thrombocytosis. PHYSICAL EXAMINATION: GENERAL: Very pleasant 83-year-old female, awake, alert and appropriate, in no acute distress. VITAL SIGNS: Temperature 37.0, pulse 98, respiratory rate 18, blood pressure 128/77. SKIN: Warm, dry, noncyanotic without petechiae, rash or ecchymosis. Turgor is fair. HEENT: Head is atraumatic, normocephalic. Eyes: PERRLA, EOMI. Nares are patent without rhinorrhea or discharge. Throat is clear. Tongue is midline. Mucous membranes are moist. NECK: Supple without JVD or thyromegaly. LYMPHATICS: No cervical or supraclavicular palpable nodes. HEART: Regular rate and rhythm. No clicks, rubs, murmurs or gallops. LUNGS: Diminished breath sounds in the left posterior base. ABDOMEN: Soft, nontender, nondistended, without palpable hepatosplenomegaly. EXTREMITIES: No clubbing, cyanosis or edema. MUSCULOSKELETAL: Strength and pulses are equal in all 4 quadrants. NEUROLOGICALLY: She is awake, alert and oriented x3. Cranial nerves are grossly intact. LABORATORY DATA: WBC count 23,390; hemoglobin 9.9, platelet count 698,000; absolute neutrophil count 19,500. Sodium 131, potassium 4.5, chloride 100, carbon dioxide 25, creatinine 1.13, BUN 21. RADIOGRAPHIC DATA: CTA of the chest done on admission reveals no evidence of pulmonary embolism; however, progressive bilateral mass-like processes throughout both hemithoraces, progressive left pleural effusion, probable developing bony metastatic change. IMPRESSION: 1. Left pleural effusion. 2. Metastatic nonsmall cell lung cancer. 3. General clinical decline. 4. Shortness of breath and dyspnea on exertion. 5. Leukocytosis (neutrophilia). 6. Normocytic normochromic anemia. 7. Reactive thrombocytosis. PLAN: In summary, Mallory is a very pleasant 83-year-old patient of Dr. Jurado's, has not been on any chemotherapy for close to a year. She last received Taxotere in June of 2018 which was poorly tolerated. She last saw Dr. Jurado on 05/23/2019 and he recommended expectant observation. I asked Mallory directly what her plans are for any further salvage chemotherapy. She appears to be resigned to the terminality of her disease and wishes palliation from this point forward. I briefly spoke to her regarding the advantages of early outpatient hospice involvement should her and her decide to do so. Agree with Dr. Vargas's consultation in plan. He will proceed with chest tube drainage today. We will advise Dr. Jurado of the patient's admission to hospital. Mallory, I believe, has an outpatient followup scheduled with Dr. Jurado next month. I have nothing further to add and agree with current medical management.
--- NOTE | 2019-06-22 09:18 | XRay Report ---
XR chest 1V portable CLINICAL HISTORY: S/P Thoracentesis COMPARISON STUDY: 04/07/2019, chest CT dated 06/21/2019 FINDINGS: There is a left-sided A-Port catheter present. There is a 0.5 cm masslike opacity within th e left midlung zone. There is an irregular 2.5 cm right upper lung zone pulmonary opacity. There is a left apical suture line. There are trace bilateral pleural effusions. There is no evidence of pneumo thorax status post thoracentesis.[ IMPRESSION: No evidence of pneumothorax status post thoracentesis. ACT 112: Negative or not required by law. Electronically signed by: Juan Carlos Emery M.D. 06/22/2019 9:17 AM
[2019-06-22 10:11] LABS: Total Protein Pleural Fluid 3.7 g/dl
[2019-06-22 10:29] LABS: Appearance Pleural Fluid CLEAR; Basophils, Fluid 0 %; Color Pleural Fluid YELLOW; Eosinophils, Fluid 0 %; Lymphocytes, Fluid 64 %; Mono,Macrophage,Mesothelial 8 %; Neutrophils, Fluid 28 %; RBC Pleural Fluid (A) < 3000 /uL; Source Pleural Fluid LEFT LUNG; WBC Pleural Fluid (A) 119 /uL
[2019-06-22] MEDS: ENOXAPARIN INJ 30 MG/0.3 ML SYR SQ SCH (14:48)
--- NOTE | 2019-06-22 15:53 | Surgery Consultation ---
Date of Consultation June 22, 2019 Assessment & Plan (1) Pleural effusion: -will plan on performing a thoracentesis at bedside today for diagnostic and therapeutic purposes -will follow serial CXR to assess for recurrence of effusion History of Present Illness Attending Physician: Samantha Vanessa MD History of Present Illness 83 year old female with hx. of lung cancer was admitted to [facility] last evening due to worsening SOB over the past week. She notes she has been more SOB with activity but seem ok at rest. She denies fevers, shakes, or chills. Cough is no miles without hemoptysis. She does not generalized fatigue. She notes a hx. of non-small cell lung cancer, [id number] and is under the care of Dr. Jurado. In the ED at CT scan showed a left pleural effusion and evidence for bony metastatic disease. Our service was asked to see her to address her pleural effusion. At the time of my exam she was resting comfortably in bed and was in no distress. Allergies Allergy/AdvReac Type Severity Reaction Status Date / Time [place] Inhibitors Allergy Mild COUGH Verified 06/21/19 11:47 erythromycin base Allergy Mild NAUSEA Verified 06/21/19 11:47 amoxicillin [From Augmentin] Allergy cheek and Verified 06/21/19 14:53 ankle swelling clavulanic acid Allergy cheek and Verified 06/21/19 11:47 [From Augmentin] ankle swelling Home Medications Home Medications Medication Instructions Recorded Confirmed Type acetaminophen 500 mg tablet 500 mg PO QID tab 03/18/19 06/21/19 History calcium carbonate 600 mg (1,500 1 tab PO BID tab 03/18/19 06/21/19 History mg)-vitamin D3 200 unit tablet folic acid 800 mcg tablet 0.8 mg PO HS tab 03/18/19 06/21/19 History losartan 100 mg tablet 100 mg PO QAM #90 tab 03/18/19 06/21/19 History simvastatin 10 mg tablet 10 mg PO HS #90 tab 03/18/19 06/21/19 History Cbd Salve 1 applic TOPICAL QAM 06/21/19 06/21/19 History ferrous sulfate [iron] 325 mg PO QDL 06/21/19 06/21/19 History Patient History Medical History Hypercholesterolemia (Acute) Hypertension (Acute) Lumbar radiculopathy (Acute) Non-small cell carcinoma of lung, stage 4 (Acute) Surgical History History of lung biopsy Family History Father Myocardial infarction Mother Liver cancer Uterine cancer Social History Preferred Language: Slovenian Communication Ability: Effective Visual Impairment: No Limitations Hearing Ability: Normal Gas Operations Analyst Required: No Beliefs That Will Affect Care: None marital status: Current Living Situation: Spouse current occupational status: retired Other Information That Helps Us Care for You: No Feels Safe at Home: Yes Safety Concerns: Feels Safe At This Time Smoking Status: Former smoker Hx Alcohol Use: Yes Hx Substance Use: No Physical Activity Frequency: Daily Seatbelt Use: always Review of Systems Constitutional: + fatigue; no fever and no chills Eyes: no diplopia Ear, Nose, Mouth, Throat: no ear pain Respiratory: + cough and + dyspnea on exertion Cardiovascular: no chest pain Gastrointestinal: no abdominal pain Musculoskeletal: no back pain Integumentary: no rash Neurologic: no localized weakness Physical Exam Constitutional: + thin; no acute distress Eyes: no conjunctival abnormality ENMT: Ears: no hearing impairment Neck: trachea midline Respiratory: normal respiratory effort; no respiratory distress and no labored breathing BS are noted to be decreaed at left base Cardiovascular: Rate/Rhythm: regular rate and regular rhythm Gastrointestinal (Abdomen): Percussion/Palpation: abdomen soft; abdomen nontender Skin: no rashes, warm and dry Neurologic: moves all extremities Psychiatric: A+Ox3, euthymic affect Results & Data Vital Signs (Past 12 Hours) Vital Signs Temp Pulse Pulse Pulse Resp BP BP 06/22/19 15:39 37.4 C 105 H 18 119/53 L 06/22/19 12:13 37.1 C 103 H 18 116/70 06/22/19 10:00 106 H 06/22/19 07:20 37.0 C 98 H 18 128/77 06/22/19 04:12 36.8 C 107 H 15 152/72 H 06/22/19 03:49 92 H Pulse Ox 06/22/19 15:39 96 06/22/19 12:13 94 06/22/19 10:00 06/22/19 07:20 91 06/22/19 04:12 91 06/22/19 03:49 PG Care Time/CCT Total # of Minutes Spent Total Time Spent with Patient: Total time spent is greater than 50% in coordination of care (as documented) at patient's floor/unit and/or counseling patient:
[2019-06-22] MEDS ORDERED: VANCOMYCIN HCL 750 MG in SODIUM CHLORIDE 0.9% 250 ML IV SCH (16:00)
[2019-06-22] MEDS: CEFEPIME 2,000 MG in SYRINGE 7.5 ML IV SCH (16:27)
--- NOTE | 2019-06-22 16:41 | Hospitalist Progress Note ---
Date of Service June 22, 2019 Assessment & Plan (1) Pneumonia: 83-year-old female with a past medical history of stage IV, metastatic lung adenocarcinoma admitted on 06/21/19 for SOB, found to have left superior lobe obstructive process consistent with a community-acquired PNA. Left superior lobe post-obstructive pneumonia - sputum culture ordered - blood cultures showing no growth through 24 hours - pleural fluid gram stain and culture, acid fast bacilli smear pending. influenza testing negative - MRSA nasal swab neg; d/c IV vanc - continue IV cefepime Pleural effusion In the setting of metastatic lung cancer, with associated pleural effusion s/p thoracentesis by Dr. Vargas post-thoracentesis CXR without evidence of pneumothorax History of non-small carcinoma lung, stage IV followed by oncology every 2 months although last dose of chemo 06/2018 - oncology consult placed - offered palliative care consult; patient will consider Hyponatremia Na 131 on admission - patient is asymptomatic - serum osms 285. Urine osms 281. Urine Na 37. Urine Cr 96. work up not consistent with SIADH - follow BMP daily Chronic anemia, likely 2/2 chronic disease state hgb 9.9 on admission - No signs or symptoms of bleeding Patient is on iron at home Continue to trend CBC Hypertension Hold losartan Hyperlipidemia Continue simvastatin Code Status: DNR/DNI DVT ppx: Lovenox 30mg, SQ, daily FEN/GI: Heart healthy diet Dispo: Med/Surg (2) Non-small cell carcinoma of lung, stage 4: (3) Hypertension: (4) Hypercholesterolemia: (5) Lung cancer: (6) Dyspnea: (7) Pleural effusion: Supervising Physician Co-Signing Physician Notes Resident Physician Supervision Note: I independently interviewed and examined the patient and verified the zhou history and physical, reviewed labs and image studies, discussed the case with the resident Dr. Love and agree with the findings and care plan. Subjective Reports feeling markedly better after L pleural effusion was tapped by Dr. Vargas. Says she is comfortable; denies being in any pain. Review of Systems Respiratory: no cough and no dyspnea Physical Exam Constitutional: WD/WN, vitals as above + thin Eyes: PERRL, conjunctivae normal, anicteric sclerae ENMT: external ear and nose normal, oropharynx normal Neck: normal visual inspection and trachea midline Respiratory: normal respiratory effort; no labored breathing and no retractions R lung CTA in all lung aguilar. Left lung with rhonchorus sounds diffusely, no distinct crackles. Some mild expiratory wheezing Cardiovascular: RRR, no murmur, no edema Heart Sounds: normal S1 and normal S2 Extremities: no pedal edema Chest (Breasts): Chest: + vascular access device or port (chemo port present on L upper chest) Gastrointestinal (Abdomen): Inspection/Auscultation: abdomen normal to inspection; abdomen not distended Skin: no rashes, warm and dry Neurologic: No focal deficits Psychiatric: Orientation: alert and oriented x 3 Affect: + flat affect Results & Data Vital Signs (Past 12 Hours) Vital Signs Temp Pulse Pulse Pulse Resp BP BP 06/22/19 15:39 37.4 C 105 H 18 119/53 L 06/22/19 12:13 37.1 C 103 H 18 116/70 06/22/19 10:00 106 H 06/22/19 07:20 37.0 C 98 H 18 128/77 Pulse Ox 06/22/19 15:39 96 06/22/19 12:13 94 06/22/19 10:00 06/22/19 07:20 91 Resident Activity Tracking Resident Involvement: Resident Care Provided Care Provided: Adult Hospital Medicine (1) Dyspnea Dyspnea type: unspecified Qualified Code(s): R06.00 - Dyspnea, unspecified (2) Lung cancer Laterality: right Lung location: middle lobe of lung Qualified Code(s): C34.2 - Malignant neoplasm of middle lobe, bronchus or lung (3) Pneumonia Laterality: right Lung location: middle lobe of lung Pneumonia type: due to unspecified organism Qualified Code(s): J18.9 - Pneumonia, unspecified organism
--- NOTE | 2019-06-22 17:30 | Emergency Department Note ---
Entered by Mikey Sanders acting as a scribe for History of Present Illness General Chief complaint: Illness Time Seen by Provider: 06/21/19 11:32 Source: patient Limitations: no limitations History of Present Illness Onset (ago): month(s) 3 Location: chest Pain Consistency: + other (worsening) Quality: + constant Associated symptoms: + denies other symptoms (trouble urinating, abdominal pain, changes in bowel movements, ), + cough, + shortness of breath, + weakness and + other (fatigue, diamond cheeks) The patient is a 83 year old female who presents to the Emergency Room with complaints of a constant and worsening illness starting 3 months ago. The patien t states she went to see her oncologist, Dr. Jurado. She states she was not feeling well at that time and states she got a chest X-Ray. She notes the X-Ray did not show any changes in her cancer, but notes she developed a viral infection. She states she has been fatigued. She states she tried taking antibiotics months ago and it did not help. She notes in the last week she has had a cough and notes she has been bringing up clear sputum. She states last week her PCP gave her antibiotics and states that helped with the cough. She states by the end of the course of the antibiotics she had worse weakness and fatigue. She notes she has developed diamond cheeks. She states she still gets SOB. She notes she had a blood transfusion done 6 weeks ago. She states she got the flu shot. She denies being around anyone else that is sick, changes in bowel movements, trouble urinating, abdominal pain, using inhalers or breathing treatments, and using oxygen at home. She states she has been drinking enough water. Home Medications Home Medications Medication Instructions Recorded Confirmed Type acetaminophen 500 mg tablet 500 mg PO QID tab 03/18/19 06/21/19 History calcium carbonate 600 mg (1,500 1 tab PO BID tab 03/18/19 06/21/19 History mg)-vitamin D3 200 unit tablet folic acid 800 mcg tablet 0.8 mg PO HS tab 03/18/19 06/21/19 History losartan 100 mg tablet 100 mg PO QAM #90 tab 03/18/19 06/21/19 History simvastatin 10 mg tablet 10 mg PO HS #90 tab 03/18/19 06/21/19 History Cbd Salve 1 applic TOPICAL QAM 01/15/20 01/15/20 History ferrous sulfate [iron] 325 mg PO QDL 06/21/19 06/21/19 History Allergies Allergy/AdvReac Type Severity Reaction Status Date / Time [place] Inhibitors Allergy Mild COUGH Verified 06/21/19 11:47 erythromycin base Allergy Mild NAUSEA Verified 06/21/19 11:47 amoxicillin [From Augmentin] Allergy cheek and Verified 06/21/19 14:53 ankle swelling clavulanic acid Allergy cheek and Verified 06/21/19 11:47 [From Augmentin] ankle swelling Past Med/Surg History Medical History Hypercholesterolemia (Acute) Hypertension (Acute) Lumbar radiculopathy (Acute) Non-small cell carcinoma of lung, stage 4 (Acute) Surgical History History of lung biopsy Family History Father Myocardial infarction Mother Liver cancer Uterine cancer Social History Preferred Language: Citizen Of [place] Communication Ability: Effective Visual Impairment: No Limitations Hearing Ability: Normal Package Car Driver Required: No Beliefs That Will Affect Care: None marital status: Current Living Situation: Spouse current occupational status: retired Other Information That Helps Us Care for You: No Feels Safe at Home: Yes Safety Concerns: Feels Safe At This Time Smoking Status: Former smoker Hx Alcohol Use: Yes Hx Substance Use: No Physical Activity Frequency: Daily Seatbelt Use: always Review of Systems See HPI for pertinent positives & negatives. and A total of 10 systems reviewed and were otherwise negative Physical Exam Vital Signs Vital Signs - 24 hr 06/21/19 11:30 06/21/19 11:33 06/21/19 12:00 Temperature 97.9 F Temperature Source Oral Pulse Rate 108 H 110 H 96 H Pulse Rate from SpO2 Sensor 108 H 109 H 96 H Respiratory Rate 16 18 18 Respiratory Effort / Characteristics Non-Labored Spontaneous Respiratory Depth Normal Respiratory Pattern Regular Blood Pressure 161/75 H 161/75 H 140/75 Blood Pressure Mean 116 103 98 Pulse Oximetry 98 98 97 Oxygen Delivery Method Room Air Sepsis Recent Fever Within 48 Hours No Sepsis Action Taken by Nursing No Action Required 06/21/19 12:01 06/21/19 12:30 06/21/19 12:31 Temperature Temperature Source Pulse Rate 103 H 90 91 H Pulse Rate from SpO2 Sensor 97 H 92 H 88 Respiratory Rate 22 20 18 Respiratory Effort / Characteristics Respiratory Depth Respiratory Pattern Blood Pressure 139/74 Blood Pressure Mean 94 Pulse Oximetry 96 96 97 Oxygen Delivery Method Sepsis Recent Fever Within 48 Hours Sepsis Action Taken by Nursing 06/21/19 13:00 06/21/19 13:01 06/21/19 13:30 Temperature Temperature Source Pulse Rate 88 87 Pulse Rate from SpO2 Sensor 89 88 Respiratory Rate 19 17 Respiratory Effort / Characteristics Respiratory Depth Respiratory Pattern Blood Pressure 143/71 H 137/104 H Blood Pressure Mean 87 112 Pulse Oximetry 96 95 Oxygen Delivery Method Sepsis Recent Fever Within 48 Hours Sepsis Action Taken by Nursing 06/21/19 14:01 06/21/19 14:30 06/21/19 14:31 Temperature Temperature Source Pulse Rate 94 H 90 92 H Pulse Rate from SpO2 Sensor 89 91 H Respiratory Rate 24 20 21 Respiratory Effort / Characteristics Respiratory Depth Respiratory Pattern Blood Pressure 156/76 H Blood Pressure Mean 91 Pulse Oximetry 96 98 Oxygen Delivery Method Sepsis Recent Fever Within 48 Hours Sepsis Action Taken by Nursing 06/21/19 15:00 06/21/19 15:01 Temperature Temperature Source Pulse Rate 94 H 94 H Pulse Rate from SpO2 Sensor 95 H 94 H Respiratory Rate 25 H 25 H Respiratory Effort / Characteristics Respiratory Depth Respiratory Pattern Blood Pressure 156/106 H Blood Pressure Mean 124 Pulse Oximetry 95 97 Oxygen Delivery Method Sepsis Recent Fever Within 48 Hours Sepsis Action Taken by Nursing GENERAL: alert, mildly ill appearing, well nourished, no distress, non-toxic EYE EXAM: normal conjunctiva, PERRL and EOM's grossly intact OROPHARYNX: no exudate, no erythema, lips, buccal mucosa, and tongue normal and mucous membranes are moist NECK: supple, no nuchal rigidity, no adenopathy, non-tender LUNGS: Clear to auscultation. Normal chest wall mechanics. Decreased breath sounds bilaterally. Rales at the left base. Port in left anterior chest wall. HEART: no murmurs, S1 normal and S2 normal ABDOMEN: abdomen soft, non-tender, normo-active bowel sounds, no masses, no rebound or guarding. BACK: Back is symmetrical on inspection and there is no deformity, no midline tenderness, no CVA tenderness. SKIN: no rashes and no bruising UPPER EXTREMITIES: upper extremities are grossly normal. FROM, nml pulses b/l. LOWER EXTREMITIES: No pitting edema. FROM, nml pulses b/l. NEURO EXAM: Normal sensorium, cranial nerves II-XII grossly intact, normal speech, no gross weakness of arms, no gross weakness of legs. Course Course 1146: The patient was evaluated in room C6, and a complete history and physical examination were performed. 1422: Patient updated on all results. Patient hemodynamically stable and continues to feel well with oxygen in place. Patient in agreement with plan for additional inpatient evaluation. 1502: I discussed the patient's case with Dr. Yi - [facility] Hospitalist. He will evaluate the patient for further management. Administered Medications Enoxaparin Sodium (Lovenox) 30 mg SQ QAM MEILY; Protocol Stop: 07/22/19 13:59 Last Admin: 06/22/19 14:48 Dose: 30 mg Documented by: [id number] Vancomycin HCl 750 mg/ Sodium (Chloride) 265 mls @ 125 mls/hr IV Q24H EMILY; Protocol Stop: 06/28/19 15:59 Last Admin: 06/22/19 16:27 Dose: 125 mls/hr Documented by: [id number] Cefepime HCl 2,000 mg/ Syringe 20 mls @ 5.5 mls/min IV Q24H EMILY; Protocol Stop: 06/28/19 14:59 Last Admin: 06/22/19 16:27 Dose: 5.5 mls/min Documented by: [id number] Simvastatin (Zocor) 10 mg PO HS EMILY Stop: 07/21/19 20:59 Last Admin: 06/21/19 21:33 Dose: 10 mg Documented by: [id number] Discontinued Medications Sodium Chloride (Nss 1000ml) 1,000 mls @ 200 mls/hr IV .Q5H EMILY Stop: 07/21/19 11:59 Last Admin: 06/21/19 20:59 Dose: Not Given Documented by: [id number] Infusion: 06/21/19 17:48 Dose: 0 mls/hr Documented by: [id number] Admin: 06/21/19 12:45 Dose: 200 mls/hr Documented by: [id number] Cefepime HCl (Maxipime) 20 mls @ 5 mls/min IV NOW STA Stop: 06/21/19 14:57 Last Admin: 06/21/19 16:35 Dose: 5 mls/min Documented by: [id number] Vancomycin HCl 1,250 mg/ (Sodium Chloride) 275 mls @ 125 mls/hr IV NOW STA Stop: 06/21/19 17:06 Last Infusion: 06/21/19 18:30 Dose: 0 mls/hr Documented by: [id number] Admin: 06/21/19 16:14 Dose: 125 mls/hr Documented by: [id number] Ioversol (Optiray 320 125ml) 120 ml IV ONCE PRN PRN Reason: Interaction Checking Stop: 06/25/19 13:53 Last Admin: 06/21/19 13:55 Dose: 120 ml Documented by: [id number] Medical Decision Making Differential Diagnosis Differential Diagnosis includes but is not limited to dehydration, stroke, anemia, hypoglycemia, hyponatremia, hypernatremia, urinary tract infection, pneumonia, bronchitis, sepsis, gastroenteritis, additional abdominal pathology, metabolic abnormalities and infections. Medical Records Attestation: I reviewed the patient's medical records. Home Medications Current Medication List: was personally reviewed by me Laboratory Data Attestation: I reviewed the patient's lab results. Result diagrams: 06/22/19 06:22 06/22/19 06:22 Lab Results 06/21/19 06/21/19 06/21/19 Range/Units 12:28 12:35 12:36 WBC 18.24 H (4.8-10.8) K/uL RBC 3.77 L (4.2-5.4) M/uL Hgb 9.9 L (12.0-16.0) g/dL Hct 31.4 L (37-47) % MCV 83.3 (80-100) fL MCH 26.3 (25-34) pg MCHC 31.5 L (32-36) g/dL RDW Std Deviation 61.1 H (36.4-46.3) fL RDW Coeff of Jfee 20.0 H (11.5-14.5) % Plt Count 561 H (130-400) K/uL MPV 8.6 (7.4-10.4) fL Immature Gran % (Auto) 0.4 % Neut % (Auto) 87.5 % Lymph % (Auto) 5.6 % [place] % (Auto) 6.3 % Eos % (Auto) 0.1 % Baso % (Auto) 0.1 % Immature Gran # (Auto) 0.07 H (0.00-0.02) K/uL Neut # (Auto) 15.97 H (1.4-6.5) K/uL Lymph # (Auto) 1.02 L (1.2-3.4) K/uL [place] # (Auto) 1.14 H (0.11-0.59) K/uL Eos # (Auto) 0.02 (0-0.5) K/uL Baso # (Auto) 0.02 (0-0.2) K/uL Rouleaux 1+ Sodium (136-145) mmol/L Potassium (3.5-5.1) mmol/L Chloride (98-107) mmol/L Carbon Dioxide (21-32) mmol/L Anion Gap (3-11) BUN (7-18) mg/dl Creatinine (0.6-1.2) mg/dl Est Cr Clr Drug Dosing ml/min Est GFR ( Amer) Est GFR (Non-Af Amer) BUN/Creatinine Ratio (10-20) Glucose (70-99) mg/dl Calcium (8.5-10.1) mg/dl Magnesium (1.8-2.4) mg/dl Total Bilirubin (0.2-1) mg/dl AST (15-37) U/L ALT (12-78) U/L Alkaline Phosphatase (45-117) U/L Troponin I (0-0.045) ng/ml NT-Pro-B Natriuret Pep (0-1800) pg/ml Total Protein (6.4-8.2) gm/dl Albumin (3.4-5.0) gm/dl Globulin (2.5-4.0) gm/dl Albumin/Globulin Ratio (0.9-2) Lipase (73-393) U/L Procalcitonin 18.89 H (0-0.5) ng/ml TSH (0.300-4.500) uIu/ml Urine Color Urine Appearance (Clear) Urine pH (4.5-7.5) Ur Specific [place] (1.000-1.030) Urine Protein (Negative) Urine Glucose (UA) (Negative) Urine Ketones (Negative) Urine Blood (Negative) Urine Nitrite (Negative) Urine Bilirubin (Negative) Urine Urobilinogen (Negative) Ur Leukocyte Esterase (Negative) Urine WBC (Auto) (0-5) /hpf Urine RBC (Auto) (0-4) /hpf U Hyaline Cast (Auto) (0-5) /lpf U Epithel Cells (Auto) (0-5) /lpf Urine Bacteria (Auto) (Negative) Urine Osmolality (500-800) mOsm/kg Ur Random Sodium mmol/L Influenza Type A (PCR) Neg for Influ A (Neg) Influenza Type B (PCR) Neg for Influ B (Neg) 06/21/19 06/21/19 06/21/19 Range/Units 12:36 14:03 14:03 WBC (4.8-10.8) K/uL RBC (4.2-5.4) M/uL Hgb (12.0-16.0) g/dL Hct (37-47) % MCV (80-100) fL MCH (25-34) pg MCHC (32-36) g/dL RDW Std Deviation (36.4-46.3) fL RDW Coeff of Jefe (11.5-14.5) % Plt Count (130-400) K/uL MPV (7.4-10.4) fL Immature Gran % (Auto) % Neut % (Auto) % Lymph % (Auto) % [place] % (Auto) % Eos % (Auto) % Baso % (Auto) % Immature Gran # (Auto) (0.00-0.02) K/uL Neut # (Auto) (1.4-6.5) K/uL Lymph # (Auto) (1.2-3.4) K/uL [place] # (Auto) (0.11-0.59) K/uL Eos # (Auto) (0-0.5) K/uL Baso # (Auto) (0-0.2) K/uL Rouleaux Sodium 128 L (136-145) mmol/L Potassium 4.3 (3.5-5.1) mmol/L Chloride 96 L (98-107) mmol/L Carbon Dioxide 28 (21-32) mmol/L Anion Gap 4.0 (3-11) BUN 24 H (7-18) mg/dl Creatinine 1.15 (0.6-1.2) mg/dl Est Cr Clr Drug Dosing 28.0 ml/min Est GFR ( Amer) 51.0 Est GFR (Non-Af Amer) 44.0 BUN/Creatinine Ratio 20.9 H (10-20) Glucose 119 H (70-99) mg/dl Calcium 9.4 (8.5-10.1) mg/dl Magnesium 1.9 (1.8-2.4) mg/dl Total Bilirubin 0.4 (0.2-1) mg/dl AST 27 (15-37) U/L ALT 23 (12-78) U/L Alkaline Phosphatase 103 (45-117) U/L Troponin I < 0.015 (0-0.045) ng/ml NT-Pro-B Natriuret Pep 1769 (0-1800) pg/ml Total Protein 6.9 (6.4-8.2) gm/dl Albumin 1.9 L (3.4-5.0) gm/dl Globulin 5.0 H (2.5-4.0) gm/dl Albumin/Globulin Ratio 0.4 L (0.9-2) Lipase 230 (73-393) U/L Procalcitonin (0-0.5) ng/ml TSH 2.630 (0.300-4.500) uIu/ml Urine Color Yellow Urine Appearance Clear (Clear) Urine pH 7.5 (4.5-7.5) Ur Specific [place] 1.010 (1.000-1.030) Urine Protein Negative (Negative) Urine Glucose (UA) 1+ H (Negative) Urine Ketones Negative (Negative) Urine Blood Negative (Negative) Urine Nitrite Negative (Negative) Urine Bilirubin Negative (Negative) Urine Urobilinogen Negative (Negative) Ur Leukocyte Esterase Trace H (Negative) Urine WBC (Auto) 1-5 (0-5) /hpf Urine RBC (Auto) 0-4 (0-4) /hpf U Hyaline Cast (Auto) 0 (0-5) /lpf U Epithel Cells (Auto) 10-20 H (0-5) /lpf Urine Bacteria (Auto) Negative (Negative) Urine Osmolality (500-800) mOsm/kg Ur Random Sodium 37 mmol/L Influenza Type A (PCR) (Neg) Influenza Type B (PCR) (Neg) 06/21/19 Range/Units 14:03 WBC (4.8-10.8) K/uL RBC (4.2-5.4) M/uL Hgb (12.0-16.0) g/dL Hct (37-47) % MCV (80-100) fL MCH (25-34) pg MCHC (32-36) g/dL RDW Std Deviation (36.4-46.3) fL RDW Coeff of Jefe (11.5-14.5) % Plt Count (130-400) K/uL MPV (7.4-10.4) fL Immature Gran % (Auto) % Neut % (Auto) % Lymph % (Auto) % [place] % (Auto) % Eos % (Auto) % Baso % (Auto) % Immature Gran # (Auto) (0.00-0.02) K/uL Neut # (Auto) (1.4-6.5) K/uL Lymph # (Auto) (1.2-3.4) K/uL [place] # (Auto) (0.11-0.59) K/uL Eos # (Auto) (0-0.5) K/uL Baso # (Auto) (0-0.2) K/uL Rouleaux Sodium (136-145) mmol/L Potassium (3.5-5.1) mmol/L Chloride (98-107) mmol/L Carbon Dioxide (21-32) mmol/L Anion Gap (3-11) BUN (7-18) mg/dl Creatinine (0.6-1.2) mg/dl Est Cr Clr Drug Dosing ml/min Est GFR ( Amer) Est GFR (Non-Af Amer) BUN/Creatinine Ratio (10-20) Glucose (70-99) mg/dl Calcium (8.5-10.1) mg/dl Magnesium (1.8-2.4) mg/dl Total Bilirubin (0.2-1) mg/dl AST (15-37) U/L ALT (12-78) U/L Alkaline Phosphatase (45-117) U/L Troponin I (0-0.045) ng/ml NT-Pro-B Natriuret Pep (0-1800) pg/ml Total Protein (6.4-8.2) gm/dl Albumin (3.4-5.0) gm/dl Globulin (2.5-4.0) gm/dl Albumin/Globulin Ratio (0.9-2) Lipase (73-393) U/L Procalcitonin (0-0.5) ng/ml TSH (0.300-4.500) uIu/ml Urine Color Urine Appearance (Clear) Urine pH (4.5-7.5) Ur Specific [place] (1.000-1.030) Urine Protein (Negative) Urine Glucose (UA) (Negative) Urine Ketones (Negative) Urine Blood (Negative) Urine Nitrite (Negative) Urine Bilirubin (Negative) Urine Urobilinogen (Negative) Ur Leukocyte Esterase (Negative) Urine WBC (Auto) (0-5) /hpf Urine RBC (Auto) (0-4) /hpf U Hyaline Cast (Auto) (0-5) /lpf U Epithel Cells (Auto) (0-5) /lpf Urine Bacteria (Auto) (Negative) Urine Osmolality 241 L (500-800) mOsm/kg Ur Random Sodium mmol/L Influenza Type A (PCR) (Neg) Influenza Type B (PCR) (Neg) Imaging Data Radiologist's Impression: Radiology results as stated below per my review and the radiologist's interpretation: CT angio chest PE protocol CT DOSE: 242.30 mGy.cm HISTORY: Chest pain PE TECHNIQUE: Multiaxial CT images of the chest were performed following the intravenous administration of contrast to evaluate the pulmonary arteries. Maximal intensity projection images were also obtained. A dose lowering technique was utilized adhering to the principles of ALARA. COMPARISON STUDY: 06/15/2018 FINDINGS: The thoracic aorta shows mild atherosclerotic change. There is no evidence for aneurysm or dissection. The pulmonary vasculature enhances appropriately. There are no significant filling defects. There are findings of progressive masslike changes in the right as well as left hemithorax. There is a progressive left pleural effusion. His appearance consistent with that of progressive neoplastic change. The largest consolidative process left mid lung has increased from 5.4 cm to 7.0 cm. Multiple additional parenchymal nodules are identified bilaterally. Vertebral body stature of the thoracic spine is unremarkable. There is considerable degenerative disc changes throughout. There is a sclerotic focus involving the anterior margin of the left fourth rib. This was not present previously. IMPRESSION: 1. Study is negative for pulmonary embolus. 2. Progressive bilateral masslike processes throughout both hemithoraces. 3. Progressive left pleural effusion. 4. Probable developing bony metastatic change. ACT 112: Negative or not required by law. The above report was generated using voice recognition software. It may contain grammatical, syntax or spelling errors. Electronically signed by: Rudy Arteaga M.D. 06/21/2019 2:16 PM ECG Data Attestation: I personally reviewed and interpreted this ECG as follows: Indication: + SOB/dyspnea Rate (beats per minute): 88 Rhythm: + normal sinus ECG Intervals/blocks: + Normal QRS, + Normal QT, + Normal CO and + Normal QT-c ECG [place]: + Normal ECG ST segments: no ST depression and no ST elevation ECG Findings: no PACs and no PVCs Blood Pressure Blood Pressure Findings: Elevated blood pressure Blood Pressure Disposition: Referred to patients primary care provider MDM Narrative Patient presenting with increasing weakness, poor p.o. intake, and recent cough that was recently treated with antibiotics. Patient states she felt the cough and breathing were slightly improved after the antibiotic however still felt weak. Patient found here to have a likely postobstructive pneumonia secondary to increased size of a known pulmonary mass that is followed by oncology. Patient felt improved here with application of oxygen which she does not typically wear at home. Patient started on IV antibiotics. Patient made aware of all results and was in agreement with plan. Case discussed with hospitalist. Patient with leukocytosis of 18, likely secondary to infection. Unclear if partially treated from recent outpatient antibiotics. Vital signs stable in the emergency room despite concern for possible evolving bacteremia/sepsis. Patient did appear clinically dehydrated and was started on gentle IV fluid rehydration. Mild hyponatremia noted, possibly secondary to malignancy. Patient's anemia appears stable compared to prior. Impression & Plan Dyspnea, Weakness, Pneumonia, Lung cancer, Pleural effusion, Leukocytosis, Anemia Discharge Plan Visit Data *Final* Discharge Date/Time: 06/21/19 18:39 Chief Complaint: Illness ED Provider: Kari Echavarria Discharge Problem: Dyspnea, Weakness, Pneumonia, Lung cancer, Pleural effusion, Leukocytosis, Anemia Patient Disposition: Admitted As Inpatient Discharge Instructions Interventions: ED Discharge Assessment Last Done: 06/21/19 18:39 Discharge Problem: Dyspnea Qualifiers: Dyspnea type: unspecified Qualified Code(s): R06.00 - Dyspnea, unspecified Pneumonia Qualifiers: Pneumonia type: due to unspecified organism Laterality: right Lung location: middle lobe of lung Qualified Code(s): J18.9 - Pneumonia, unspecified organism Lung cancer Qualifiers: Laterality: right Lung location: middle lobe of lung Qualified Code(s): C34.2 - Malignant neoplasm of middle lobe, bronchus or lung Leukocytosis Qualifiers: Leukocytosis type: unspecified Qualified Code(s): D72.829 - Elevated white blood cell count, unspecified Anemia Qualifiers: Anemia type: other cause Other causes of anemia: other cause, not classified Qualified Code(s): D64.89 - Other specified anemias The scribe's documentation has been prepared under my direction and personally reviewed by me in its entirety. I confirm that the note above accurately reflects all work, treatment, procedures, and medical decision making performed by me.
[2019-06-22] MEDS: HEPARIN 100 UNIT/ML 5ML FLUSH FLUSH PRN (19:04)
[2019-06-22] MEDS: SIMVASTATIN 10 MG TAB PO SCH (21:46)
[2019-06-23] MEDS: HEPARIN 100 UNIT/ML 5ML FLUSH FLUSH PRN ×2 (05:33→14:35)
[2019-06-23 06:25] LABS: Basophils # (auto) 0.02 K/uL (0-0.2); Basophils % (auto) 0.1 %; Eosinophils # (auto) 0.06 K/uL (0-0.5); Eosinophils % (auto) 0.3 %; Hemoglobin 8.6 g/dL (12.0-16.0); Immature Granulocytes # (auto) 0.09 K/uL (0.00-0.02); Immature Granulocytes % (auto) 0.5 %; Lymphocytes # (auto) 1.11 K/uL (1.2-3.4); Lymphocytes % (auto) 6.2 %; Mean Corpuscular Hemoglobin 26.2 pg (25-34); Mean Corpuscular Hgb Conc 30.7 g/dL (32-36); Mean Corpuscular Volume 85.4 fL (80-100); Mean Platelet Volume 8.9 fL (7.4-10.4); Monocytes # (auto) 1.51 K/uL (0.11-0.59); Monocytes % (auto) 8.4 %; Neutrophils # (auto) 15.16 K/uL (1.4-6.5); Neutrophils % (auto) 84.5 %; Platelet Count 528 K/uL (130-400); RDW Coefficient of Variation 20.6 % (11.5-14.5); RDW Standard Deviation 64.5 fL (36.4-46.3); Red Blood Count 3.28 M/uL (4.2-5.4); White Blood Count 17.95 K/uL (4.8-10.8)
[2019-06-23 06:55] LABS: BUN Creatinine Ratio 20.6 (10-20); Calcium 8.9 mg/dl (8.5-10.1); Creatinine Clr Calc Pharmacy 30.6 ml/min; Est GFR (African American) 61.8; Est GFR (Non-African American) 53.3
--- NOTE | 2019-06-23 07:00 | Operative Report ---
DATE OF OPERATION: 06/22/2019 PREOPERATIVE DIAGNOSIS: Left pleural effusion. POSTOPERATIVE DIAGNOSIS: Left pleural effusion. PROCEDURE: Left thoracentesis under ultrasound guidance. SURGEON: Sammy Vargas MD ANESTHESIA: Local. SPECIFICS OF PROCEDURE: With the patient in the upright position, an ultrasound was used to find a window into the left pleural cavity. This patient has a history of treated carcinoma of the lung. She has done remarkably well given her advanced state. She has been short of breath, but is currently on room air. I was asked to evaluate her for tapping this for both diagnostic and therapeutic purposes. After a spot had been found on her posterior left thorax, it was marked with ink. This was prepped and draped in usual sterile fashion after a timeout had been called and a 25-gauge needle with 1% Xylocaine without epinephrine was used to anesthetize the skin and subcutaneous tissues. A large bore needle was used to anesthetize the deeper tissues and get into the pleural cavity where a serous clear fluid was aspirated. A guidewire was inserted through the needle and the needle was removed. Triple lumen catheter was slid in. Approximately 550 mL of a serous yellow fluid was drained. She had some reexpansion pain with some reexpansion coughing. I really could not get any more fluid out. I removed the catheter. We had no bleeding. Antimicrobial dressings were placed. Appropriate studies were sent. Chest x-ray showed no evidence of pneumothorax after. She tolerated it quite well and in fact felt better right after we had finished. I attest to the content of the Intraoperative Record and any orders documented therein. Any exception s are noted below.
[2019-06-23] MEDS: ENOXAPARIN INJ 30 MG/0.3 ML SYR SQ SCH (09:57)
--- NOTE | 2019-06-23 12:26 | XRay Report ---
XR chest 2V PA/lateral CLINICAL HISTORY: effusion COMPARISON STUDY: 06/22/2019 FINDINGS: The parenchymal densities previously described are unchanged. There is central catheter in superior vena cava. Tortuous metacarpal of the left lung base. Unchanged masslike changes in the left midlung as well as right midlung and right apical region are u naltered. IMPRESSION: Interval development of a trace left pleural effusion.. 2. No significant pneumothorax. 3. Unchanging bilateral parenchymal masslike changes ACT 112: Negative or not required by law. The above report was generated using voice recognition software. It may contain grammatical, syntax or spelling errors. Electronically signed by: Rudy Arteaga M.D. 06/23/2019 12:25 PM
[2019-06-23] MEDS: CEFEPIME 2,000 MG in SYRINGE 7.5 ML IV SCH (14:35)
[2019-06-23] MEDS ORDERED: CEFEPIME 2,000 MG in SYRINGE 7.5 ML IV SCH (15:00)
--- NOTE | 2019-06-23 16:09 | Hospitalist Progress Note ---
Date of Service June 23, 2019 Assessment & Plan (1) Pneumonia: 83-year-old female with a past medical history of stage IV, metastatic lung adenocarcinoma admitted on 06/21/19 for SOB, found to have left superior lobe obstructive process consistent with a community-acquired PNA. Left superior lobe post-obstructive pneumonia - sputum culture ordered, not yet obtained - blood cultures showing no growth through 48 hours - pleural fluid gram stain negative and culture showing no growth to date; acid fast bacilli smear pending. - WBC at 17 today, down from 23 on admission influenza testing negative - MRSA nasal swab neg; d/c IV vanc - d/c IV cefepime 06/23 and start on 06/24: Azithromycin 500mg, PO daily for 2 days and Augmentin 875mg, 2 tabs, PO, BID for 2 days Pleural effusion In the setting of metastatic lung cancer, with associated pleural effusion s/p thoracentesis by Dr. Vargas post-thoracentesis CXR without evidence of pneumothorax History of non-small carcinoma lung, stage IV followed by oncology every 2 months although last dose of chemo 06/2018 - oncology consult placed - offered palliative care consult; patient declines at present but will continue to consider Hyponatremia Na 131 on admission, up to 133 today 06/23 - patient is asymptomatic - serum osms 285. Urine osms 281. Urine Na 37. Urine Cr 96. work up not consistent with SIADH - follow BMP daily Chronic anemia, likely 2/2 chronic disease state hgb 9.9 on admission; down to 8.6 06/23 - No signs or symptoms of bleeding Patient is on iron at home Continue to trend CBC Hypertension Hold losartan Hyperlipidemia Continue simvastatin Code Status: DNR/DNI DVT ppx: Lovenox 30mg, SQ, daily FEN/GI: Heart healthy diet Dispo: Med/Surg (2) Non-small cell carcinoma of lung, stage 4: (3) Hypertension: (4) Hypercholesterolemia: (5) Lung cancer: (6) Dyspnea: (7) Pleural effusion: Supervising Physician Co-Signing Physician Notes Resident Physician Supervision Note: I independently interviewed and examined the patient and verified the zhou history and physical, reviewed labs and image studies, discussed the case with the resident Dr. Love and agree with the findings and care plan. Subjective No acute events overnight. Feeling well, but diffusely weak after participating in PT. present at bedside. Would like to continue to think over whether they want to meet with palliative care. Review of Systems Constitutional: + weakness Respiratory: no cough and no dyspnea breathing much improved Physical Exam Constitutional: WD/WN, vitals as above + thin Eyes: PERRL, conjunctivae normal, anicteric sclerae ENMT: external ear and nose normal, oropharynx normal Neck: normal visual inspection and trachea midline Respiratory: normal respiratory effort; no labored breathing and no retractions Cardiovascular: RRR, no murmur, no edema Heart Sounds: normal S1 and normal S2 Extremities: no pedal edema Chest (Breasts): Chest: + vascular access device or port (chemo port present on L upper chest) Gastrointestinal (Abdomen): Inspection/Auscultation: abdomen normal to inspection; abdomen not distended Skin: no rashes, warm and dry Psychiatric: Orientation: alert and oriented x 3 Affect: + flat affect Results & Data Vital Signs (Past 12 Hours) Vital Signs Temp Pulse Pulse Resp BP Pulse Ox 06/23/19 15:05 36.9 C 94 H 16 115/69 95 06/23/19 08:18 37.3 C 90 16 140/60 95 Resident Activity Tracking Resident Involvement: Resident Care Provided Care Provided: Adult Hospital Medicine (1) Dyspnea Dyspnea type: unspecified Qualified Code(s): R06.00 - Dyspnea, unspecified (2) Lung cancer Laterality: right Lung location: middle lobe of lung Qualified Code(s): C34.2 - Malignant neoplasm of middle lobe, bronchus or lung (3) Pneumonia Laterality: right Lung location: middle lobe of lung Pneumonia type: due to unspecified organism Qualified Code(s): J18.9 - Pneumonia, unspecified organism
[2019-06-23] MEDS: SIMVASTATIN 10 MG TAB PO SCH (20:10)
[2019-06-24] MEDS: HEPARIN 100 UNIT/ML 5ML FLUSH FLUSH PRN (05:32)
[2019-06-24 06:39] LABS: Basophils # (auto) 0.01 K/uL (0-0.2); Basophils % (auto) 0.1 %; Eosinophils # (auto) 0.05 K/uL (0-0.5); Eosinophils % (auto) 0.3 %; Hematocrit (blood only) 28.2 % (37-47); Hemoglobin 8.6 g/dL (12.0-16.0); Immature Granulocytes # (auto) 0.06 K/uL (0.00-0.02); Immature Granulocytes % (auto) 0.3 %; Lymphocytes # (auto) 0.94 K/uL (1.2-3.4); Lymphocytes % (auto) 4.9 %; Mean Corpuscular Hemoglobin 26.2 pg (25-34); Mean Corpuscular Hgb Conc 30.5 g/dL (32-36); Mean Platelet Volume 9.1 fL (7.4-10.4); Monocytes # (auto) 1.48 K/uL (0.11-0.59); Monocytes % (auto) 7.7 %; Neutrophils # (auto) 16.78 K/uL (1.4-6.5); Neutrophils % (auto) 86.7 %; Platelet Count 494 K/uL (130-400); RDW Coefficient of Variation 20.1 % (11.5-14.5); RDW Standard Deviation 63.4 fL (36.4-46.3); Red Blood Count 3.28 M/uL (4.2-5.4); White Blood Count 19.32 K/uL (4.8-10.8)
[2019-06-24 07:00] LABS: Anisocytosis Present
[2019-06-24 07:04] LABS: BUN Creatinine Ratio 22.5 (10-20); Calcium 9.1 mg/dl (8.5-10.1); Creatinine Clr Calc Pharmacy 29.9 ml/min; Est GFR (African American) 60.3; Est GFR (Non-African American) 52.1; Potassium 4.1 mmol/L (3.5-5.1)
[2019-06-24] MEDS ORDERED: AMOXICILLIN/CLAVULANATE 875 MG TAB PO SCH (08:00)
--- NOTE | 2019-06-24 08:33 | Surgery Progress Note ---
Date of Service June 24, 2019 Assessment & Plan (1) Pleural effusion: Patient will be discharged today. I will see her back in the office next week with an x-ray. Present on Admission?: Yes Subjective Patient is happy about going home today. Physical Exam Physical Exam: She is moving air fairly well in the left side. I removed her dressing from her thoracentesis site and is clean. Results & Data Vital Signs (Past 12 Hours) Vital Signs Temp Pulse Resp BP BP Pulse Ox 06/24/19 07:35 36.9 C 95 H 16 139/72 92 06/23/19 23:16 37.1 C 95 H 14 133/55 L 92 06/23/19 23:15 37.1 C 95 H 14 92 PG Care Time/CCT Total # of Minutes Spent Total Time Spent with Patient: Total time spent is greater than 50% in coord ination of care (as documented) at patient's floor/unit and/or counseling patient:
--- NOTE | 2019-06-24 08:44 | Discharge Summary ---
Date of Service June 24, 2019 Admission HPI Per Admitting Provider 83-year-old female with a past medical history of metastatic lung cancer, hyperlipidemia, hypertension presents with worsening shortness of breath over the past week. She states that her symptoms started with a productive cough last week. She was treated for 6 days for a upper respiratory infection. She denied any fevers, chills or chest pain. She describes feeling more fatigued the past 2 months.She denies any hemoptysis. She is seen by her oncologist, Dr. Jurado, but has foregone further treatment for her metastatic cancer. Admission Exam Per Admitting Provider Constitutional: well developed; no acute distress Eyes: PERRL, conjunctivae normal, anicteric sclerae ENMT: external ear and nose normal, oropharynx normal Neck: trachea midline, no thyromegaly Respiratory: normal respiratory effort; no respiratory distress, no labored breathing, no retractions and does not use accessory muscles Auscultation: + diminished lung sounds (Lung bases); no crackles, no rales, no rhonchi and no wheezes Cardiovascular: RRR, no murmur, no edema Gastrointestinal (Abdomen): normal bowel sounds, soft, nontender, no hepatosplenomegaly Musculoskeletal: no cyanosis or clubbing, extremities motor strength 5/5 Skin: no rashes, warm and dry Neurologic: PERRL, EOMI, accommodation nl, no face palsy, no dysarthria Psychiatric: A+Ox3, euthymic affect Principal Diagnosis community acquired pneumonia, pleural effusion Discharge Exam Constitutional WD/WN, vitals as above Respiratory normal respiratory effort, lungs clear to auscultation L side effusion drainage site is dry, no drainage, no surrounding erythema. Cardiovascular RRR, no murmur, no edema Gastrointestinal (Abdomen) normal bowel sounds, soft, nontender, no hepatosplenomegaly Skin no rashes, warm and dry Psychiatric A+Ox3, euthymic affect Discharge Data Allergies Allergy/AdvReac Type Severity Reaction Status Date / Time [place] Inhibitors Allergy Mild COUGH Verified 06/25/19 09:38 erythromycin base Allergy Mild NAUSEA Verified 06/25/19 09:38 amoxicillin [From Augmentin] Allergy cheek and Verified 06/25/19 09:38 ankle swelling clavulanic acid Allergy cheek and Verified 06/25/19 09:38 [From Augmentin] ankle swelling Consultations 06/21/19 15:30 ED Decision to Admit Stat 06/21/19 17:48 Consult Oncology Routine 06/21/19 19:21 Consult Case Management - Discharge Planning Routine 06/21/19 21:40 Consult Thoracic Surgery Routine Ordered Studies 06/21/19 12:19 CT angio chest PE protocol Stat Hospital Course (1) Pneumonia: 83-year-old female with a past medical history of stage IV metastatic lung adenocarcinoma admitted on 06/21/19 for SOB, found to have left superior lobe obstructive process consistent with a community-acquired pneumonia. Left superior lobe post-obstructive pneumonia: - Culture of pleural fluid taken 06/22 shows no growth to date. - blood cultures showing no growth through 48 hours. - WBC at 19 today, down from 23 on admission but elevated from 17 yesterday. influenza testing negative. - Was treated with vanc/cefepime; MRSA nasal swab was negative and deescalated to cefepime only, then to oral antibiotics. - Pleural effusion drained by Dr. Vargas as below with improvement of shortness of breath. - Discharged with Azithromycin 500mg daily, Augmentin 500BID (per protocol given renal function, age, weight; discussed with Pharmacy) to complete both on 06/26/2019. - Will have home health PT evaluation and treatment; will have PCP and Dr. Vargas follow up within 7 days. Pleural effusion In the setting of metastatic lung cancer, with associated pleural effusion s/p thoracentesis by Dr. Vargas. post-thoracentesis CXR without evidence of pneumothorax. - Will have follow up with Dr. Vargas in one week with repeat CXR. History of non-small carcinoma lung, stage IV followed by oncology every 2 months although last dose of chemo 06/2018. - offered palliative care consult; patient declines at present but will continue to consider; pt would benefit from palliative care services given diagnosis and deconditioning in the hospital, however pt interested on ly in home PT at this time. Hyponatremia Na 131 on admission, up to 133 today. - patient is asymptomatic. - serum osms 285. Urine osms 281. Urine Na 37. Urine Cr 96. work up not consistent with SIADH. Chronic anemia, likely 2/2 chronic disease state hgb 9.9 on admission; down to 8.6 today. - No signs or symptoms of bleeding. Patient is on iron at home. Repeat CBC in one week recommended. Hypertension Resume losartan. Hyperlipidemia Continue simvastatin. Code Status: DNR/DNI (2) Non-small cell carcinoma of lung, stage 4: (3) Hypertension: (4) Hypercholesterolemia: (5) Lung cancer: (6) Dyspnea: (7) Pleural effusion: Total Time Total Time Spent Total Time Spent (In Minutes): see attending attestation Discharge Plan Discharge Items Patient Disposition: Home - Home Health Services Reason For Visit: PLEURAL EFFUSION, SEPSIS Discharge Diagnosis: pneumonia and pleural effusion Activity: Resume your previous activity Non-emergency contact: Primary Care Provider, Hospitalist and Surgeon Call non-emergency contact if: you have any medication questions, your symptoms worsen and your temperature is above 101 Follow-up/Referrals: Pro,Malachi Tsai MD [Primary Care Provider] - Diet: Regular Addtl Attending Provider Instructions: You were admitted to the hospital for concern for pneumonia and found to have both a pneumonia and a collection of fluid in the left lung making it more difficult for you to breathe. We began treating you with antibiotics and Dr. Vargas drained the fluid from your lung cavity, which helped you feel better. We now feel comfortable sending you home with instructions for your antibiotics, home health services, and follow up appointments. 1) Medication changes: We have sent two antibiotics to the [facility] on [facility]. You should take them as follows: Augmentin one pill every 12 hours with food starting with dinner today until gone. Azithromycin 2 pills once daily starting tomorrow morning until gone. 2) Home Health Services: Home health will see you in order to perform physical therapy ith you to get you stronger after being in the hospital. If you find that you need more services please let your primary care doctor know. 3) Follow up appointments: Dr. Vargas would like to see you on one week to see how you are feeling. You will hear from one of his staff or nurses with regard to setting up that appointment. You will also hear from the nurse regarding setting up an appointment with your primary care doctor, also in one week. Pending Studies at Discharge: No Stand-Alone Forms: My [employer], Smoking Cessation Medications and DC Order Prescriptions: New azithromycin [Zithromax] 250 mg Tablet 500 mg PO QAM 2 Days Qty: 4 RF: 0 amoxicillin-pot clavulanate 500-125 mg Tablet 1 tab PO BIDM 3 Days Qty: 6 RF: 0 Continued acetaminophen 500 mg tablet 500 mg PO QID RF: 0 calcium carbonate-vitamin D3 600 mg(1,500mg) -200 unit tablet 1 tab PO BID RF: 0 folic acid 800 mcg tablet 0.8 mg PO HS RF: 0 losartan [Cozaar] 100 mg tablet 100 mg PO QAM Qty: 90 RF: 0 simvastatin 10 mg tablet 10 mg PO HS Qty: 90 RF: 0 ferrous sulfate [iron] 325 mg (65 mg iron) Tablet 325 mg PO QDL RF: 0 Cbd Salve 1 applic topical QAM RF: 0 Discharge Orders: Discharge Order (Routine); Ordered 06/24/19 Ordered By: Ngozi Sutton/Other Patient Handouts: Effusion Pleural, Thoracentesis Dc, DVT Prevent Admission Data Admit Date/Time: 06/21/19 16:46 Attending Provider: Samantha Vanessa Admit Provider: Amos Yi Primary Care Provider: Malachi Caldwell Other Providers: Amos Yi ; Navin Grimes V ; Sammy Vargas Other Interventions: Discharge Summary Assessment (RN) Last Done: 06/24/19 12:21 DC Date/Time DO NOT enter until pt leaves facility: 06/24/19 13:21 Supervising Physician Co-Signing Physician Notes Resident Physician Supervision Note: I independently interviewed and examined the patient and verified the zhou history and physical, reviewed labs and image studies, discussed the case with the resident Dr. Desouza and agree with the findings and care plan. Resident Activity Tracking Resident Involvement: Resident Care Provided Care Provided: Adult Hospital Medicine
[2019-06-24] MEDS: ENOXAPARIN INJ 30 MG/0.3 ML SYR SQ SCH (08:59)
[2019-06-24] MEDS ORDERED: AZITHROMYCIN 250 MG TAB PO SCH (09:00)
[2019-06-24] MEDS ORDERED: AMOXICILLIN/CLAVULANATE 500 MG TAB PO SCH (17:00)
== END 2019-06-24 13:21 | disposition home health service (06) | DRG 194 ==
LOC: ED 11:24 → 2W 16:46 → SUATTDRO 16:46 → 2W 18:39 → 3W 06-22 13:55

== ENCOUNTER 2019-06-25 09:04 | Inpatient (IN) ==
[2019-06-25] MEDS ORDERED: LEVOFLOXACIN/D5W 750 MG/150 ML BAG IV STA (09:41)
[2019-06-25] MEDS ORDERED: SODIUM CHLORIDE 0.9% 1000ML 500 ML IV ONE (09:43)
[2019-06-25] MEDS ORDERED: ALBUT/IPRATROP 3MG/0.5MG NEB 3 ML VIAL NEB STA (09:44)
--- NOTE | 2019-06-25 10:07 | Emergency Department Note ---
Entered by Massiel Guerrero acting as a scribe for Hilton Chan DO History of Present Illness General Chief complaint: Dizziness Stated complaint: dizzy/nausea Time Seen by Provider: 06/25/19 09:32 Source: patient History of Present Illness Onset (ago): hour(s) (4.5) Location: head Pain Consistency: + constant Quality: + other (dizziness) Associated symptoms: + weakness The patient is a 83 year old female who presents to the Emergency Room with complaints of constant dizziness beginning 4.5 hours ago. The patient reports she is unable to stand due to feeling weak and feeling as though she will fall. The patient's reports the patient was admitted to the hospital for pneumonia 4 days ago and was just released yesterday. He notes the patient had 20 oz of fluid removed from her chest during her stay. He states the patient was walking and climbing stairs by herself before she was discharged. He notes she is on a new antibiotic. The patient denies wearing oxygen at home. Home Medications Home Medications Medication Instructions Recorded Confirmed Type acetaminophen 500 mg tablet 500 mg PO QID tab 03/18/19 06/25/19 History calcium carbonate 600 mg (1,500 1 tab PO BID tab 03/18/19 06/25/19 History mg)-vitamin D3 200 unit tablet folic acid 800 mcg tablet 0.8 mg PO HS tab 03/18/19 06/25/19 History losartan 100 mg tablet 100 mg PO QAM #90 tab 03/18/19 06/25/19 History simvastatin 10 mg tablet 10 mg PO HS #90 tab 03/18/19 06/25/19 History Cbd Salve 1 applic TOPICAL QAM 06/21/19 06/25/19 History ferrous sulfate [iron] 325 mg PO QDL 06/21/19 06/25/19 History amoxicillin-pot clavulanate 1 tab PO BIDM 3 Days #6 tab 06/24/19 06/25/19 Rx azithromycin [Zithromax] 500 mg PO QAM 2 Days #4 tab 06/24/19 06/25/19 Rx Allergies Allergy/AdvReac Type Severity Reaction Status Date / Time INDIA Inhibitors Allergy Mild COUGH Verified 06/25/19 09:38 erythromycin base Allergy Mild NAUSEA Verified 06/25/19 09:38 amoxicillin [From Augmentin] Allergy cheek and Verified 06/25/19 09:38 ankle swelling clavulanic acid Allergy cheek and Verified 06/25/19 09:38 [From Augmentin] ankle swelling Past Med/Surg History Medical History Hypercholesterolemia (Acute) Hypertension (Acute) Lumbar radiculopathy (Acute) Non-small cell carcinoma of lung, stage 4 (Acute) Surgical History History of lung biopsy Family History Father Myocardial infarction Mother Liver cancer Uterine cancer Social History Preferred Language: Hungarian Communication Ability: Effective Visual Impairment: No Limitations Hearing Ability: Normal 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 and A total of 10 systems reviewed and were otherwise negative Physical Exam Vital Signs Vital Signs - 24 hr 06/25/19 09:08 06/25/19 09:10 06/25/19 09:17 Temperature 37 C Temperature Source Oral Pulse Rate 112 H 120 H 108 H Pulse Rate from SpO2 Sensor 96 H 104 H Pulse Rhythm Respiratory Rate 30 H 22 24 Blood Pressure 165/84 H 165/84 H Blood Pressure Mean 96 111 Pulse Oximetry 90 89 L 90 Oxygen Delivery Method Room Air Oxygen Flow Rate 0 Sepsis Recent Fever Within 48 Hours No Sepsis New/Unexplained Change in Mental Status No Sepsis Action Taken by Nursing No Action Required Oxygen Flow Rate - Titration 2 Pulse Oximetry Post Tiitration 94 06/25/19 09:30 06/25/19 10:00 06/25/19 10:11 Temperature Temperature Source Pulse Rate 105 H 102 H 104 H Pulse Rate from SpO2 Sensor 105 H 102 H 100 H Pulse Rhythm Respiratory Rate 18 16 34 H Blood Pressure 144/74 H Blood Pressure Mean 91 Pulse Oximetry 97 99 98 Oxygen Delivery Method Oxygen Flow Rate Sepsis Recent Fever Within 48 Hours Sepsis New/Unexplained Change in Mental Status Sepsis Action Taken by Nursing Oxygen Flow Rate - Titration Pulse Oximetry Post Tiitration 06/25/19 10:14 Temperature Temperature Source Pulse Rate Pulse Rate from SpO2 Sensor Pulse Rhythm Regular Respiratory Rate Blood Pressure Blood Pressure Mean Pulse Oximetry 98 Oxygen Delivery Method Nasal Cannula Oxygen Flow Rate 2 Sepsis Recent Fever Within 48 Hours Sepsis New/Unexplained Change in Mental Status Sepsis Action Taken by Nursing Oxygen Flow Rate - Titration Pulse Oximetry Post Tiitration CONSTITUTIONAL/VITAL SIGNS: Reviewed / noted above. GENERAL: Non-toxic in appearance. Generalized weakness. INTEGUMENTARY: Warm, dry, and [place]. HEAD: Normocephalic. EYES: without scleral icterus or trauma. ENT/OROPHARYNX: clear and moist. LYMPHADENOPATHY/NECK: Is supple without lymphadenopathy or meningismus. RESPIRATORY: Scattered rhonchi and wheezes in bilateral lungs. CARDIOVASCULAR: Regular rate and rhythm. GI/ABDOMEN: Soft and nontender. No organomegaly or pulsatile mass. No rebound or guarding. Normal bowel sounds. EXTREMITIES: Warm and well perfused. BACK: No CVA tenderness. NEUROLOGICAL: Intact without focal deficits. PSYCHIATRIC: normal affect. MUSCULOSKELETAL: Normally developed with good muscle tone. Course Course 0935: Past medical records reviewed. The patient was evaluated in room A12B. A complete history and physical exam was performed. 0945: Upon reevaluation, I discussed findings and results with the patient. She verbalized agreement of the treatment plan. Discussed the patient's case with Dr. Avitia - [facility] Hospitalist. The patient will be evaluated for further treatment and disposition. Administered Medications Discontinued Medications Albuterol (Duoneb) 3 ml NEB NOW STA Stop: 06/25/19 09:45 Last Admin: 06/25/19 10:23 Dose: 3 ml Documented by: [id number] Levofloxacin/Dextrose (Levaquin/D5w) 750 mg in 150 mls @ 100 mls/hr IV NOW STA Stop: 06/25/19 11:10 Last Admin: 06/25/19 10:23 Dose: 100 mls/hr Documented by: [id number] Sodium Chloride (Nss 1000ml) 500 mls @ 999 mls/hr IV .Q31M ONE Stop: 06/25/19 10:13 Last Infusion: 06/25/19 11:19 Dose: 0 mls/hr Documented by: [id number] Admin: 06/25/19 10:23 Dose: 999 mls/hr Documented by: [id number] Medical Decision Making Differential Diagnosis Differential Diagnosis includes but is not limited to dehydration, stroke, anemia, hypoglycemia, hyponatremia, hypernatremia, urinary tract infection, pneumonia, bronchitis, sepsis, gastroenteritis, additional abdominal pathology, metabolic abnormalities and infections. Medical Records Attestation: I reviewed the patient's medical records. Home Medications Current Medication List: was personally reviewed by me Laboratory Data Attestation: I reviewed the patient's lab results. Result diagrams: 06/25/19 10:10 06/25/19 10:10 Lab Results 06/25/19 06/25/19 06/25/19 Range/Units 10:10 10:10 10:10 WBC 21.36 H (4.8-10.8) K/uL RBC 3.26 L (4.2-5.4) M/uL Hgb 8.5 L (12.0-16.0) g/dL Hct 27.9 L (37-47) % MCV 85.6 (80-100) fL MCH 26.1 (25-34) pg MCHC 30.5 L (32-36) g/dL RDW Std Deviation 61.9 H (36.4-46.3) fL RDW Coeff of Jefe 19.7 H (11.5-14.5) % Plt Count 452 H (130-400) K/uL MPV 8.9 (7.4-10.4) fL Immature Gran % (Auto) 0.5 % Neut % (Auto) 90.0 % Lymph % (Auto) 2.8 % [place] % (Auto) 6.6 % Eos % (Auto) 0.1 % Baso % (Auto) 0.0 % Immature Gran # (Auto) 0.11 H (0.00-0.02) K/uL Neut # (Auto) 19.22 H (1.4-6.5) K/uL Lymph # (Auto) 0.60 L (1.2-3.4) K/uL [place] # (Auto) 1.40 H (0.11-0.59) K/uL Eos # (Auto) 0.02 (0-0.5) K/uL Baso # (Auto) 0.01 (0-0.2) K/uL PT 11.8 (9.0-12.0) Seconds INR 1.2 H (0.9-1.1) APTT 33.4 H (21.0-31.0) Seconds PTT Ratio 1.2 Sodium 134 L (136-145) mmol/L Potassium 4.1 (3.5-5.1) mmol/L Chloride 102 (98-107) mmol/L Carbon Dioxide 26 (21-32) mmol/L Anion Gap 6.0 (3-11) BUN 25 H (7-18) mg/dl Creatinine 1.09 (0.6-1.2) mg/dl Est Cr Clr Drug Dosing 29.5 ml/min Est GFR ( Amer) 54.4 Est GFR (Non-Af Amer) 46.9 BUN/Creatinine Ratio 22.6 H (10-20) Glucose 128 H (70-99) mg/dl Calcium 9.1 (8.5-10.1) mg/dl Total Bilirubin 0.4 (0.2-1) mg/dl AST 116 H (15-37) U/L ALT 76 (12-78) U/L Alkaline Phosphatase 97 (45-117) U/L Troponin I < 0.015 (0-0.045) ng/ml Total Protein 6.2 L (6.4-8.2) gm/dl Albumin 1.5 L (3.4-5.0) gm/dl Globulin 4.7 H (2.5-4.0) gm/dl Albumin/Globulin Ratio 0.3 L (0.9-2) Influenza Type A (PCR) (Neg) Influenza Type B (PCR) (Neg) 06/25/19 Range/Units 10:10 WBC (4.8-10.8) K/uL RBC (4.2-5.4) M/uL Hgb (12.0-16.0) g/dL Hct (37-47) % MCV (80-100) fL MCH (25-34) pg MCHC (32-36) g/dL RDW Std Deviation (36.4-46.3) fL RDW Coeff of Jefe (11.5-14.5) % Plt Count (130-400) K/uL MPV (7.4-10.4) fL Immature Gran % (Auto) % Neut % (Auto) % Lymph % (Auto) % [place] % (Auto) % Eos % (Auto) % Baso % (Auto) % Immature Gran # (Auto) (0.00-0.02) K/uL Neut # (Auto) (1.4-6.5) K/uL Lymph # (Auto) (1.2-3.4) K/uL [place] # (Auto) (0.11-0.59) K/uL Eos # (Auto) (0-0.5) K/uL Baso # (Auto) (0-0.2) K/uL PT (9.0-12.0) Seconds INR (0.9-1.1) APTT (21.0-31.0) Seconds PTT Ratio Sodium (136-145) mmol/L Potassium (3.5-5.1) mmol/L Chloride (98-107) mmol/L Carbon Dioxide (21-32) mmol/L Anion Gap (3-11) BUN (7-18) mg/dl Creatinine (0.6-1.2) mg/dl Est Cr Clr Drug Dosing ml/min Est GFR ( Amer) Est GFR (Non-Af Amer) BUN/Creatinine Ratio (10-20) Glucose (70-99) mg/dl Calcium (8.5-10.1) mg/dl Total Bilirubin (0.2-1) mg/dl AST (15-37) U/L ALT (12-78) U/L Alkaline Phosphatase (45-117) U/L Troponin I (0-0.045) ng/ml Total Protein (6.4-8.2) gm/dl Albumin (3.4-5.0) gm/dl Globulin (2.5-4.0) gm/dl Albumin/Globulin Ratio (0.9-2) Influenza Type A (PCR) Neg for Influ A (Neg) Influenza Type B (PCR) Neg for Influ B (Neg) Imaging Data Radiologist's Impression: Radiology results as stated below per my review and the radiologist's interpretation: XR chest 1V portable CLINICAL HISTORY: 83 years-old Female presenting with Dyspnea. TECHNIQUE: Portable upright AP view of the chest was obtained. COMPARISON: 06/23/2019. FINDINGS: Left subclavian Mediport has been accessed and terminates in the lower SVC. Atherosclerosis of the aortic arch. Cardiac silhouette mildly enlarged. Suture margins project over the left apex and midlung. Persistent dense left mid lung opacity and the smaller right apical opacity. Persistent small left pleural effusion, which is either increased in size or the left lung is less well aerated. Heterogeneous radiolucency with mild hyperinflation of the right lung. No pneumothorax. Osteopenia. Degenerative changes and mild scoliosis of the spine. Upper abdomen normal. IMPRESSION: 1. Persistent dense left mid lung opacity and more limited right old opacity, which correlate with the mass like areas of consolidation on recent CT from 06/21/2019. 2. Stable to increased left pleural effusion with worsened aeration of the left lung. 3. Redemonstration of postsurgical changes of the left lung. 4. No pneumothorax. ACT 112: Negative or not required by law. Electronically signed by: Cristino Allan M.D. 06/25/2019 11:13 AM ECG Data Attestation: I personally reviewed and interpreted this ECG as follows: Indication: + weakness Rate (beats per minute): 107 Rhythm: + sinus tachycardia ECG Intervals/blocks: + Normal QT-c ECG ST segments: no ST elevation ECG Findings: + PVCs Blood Pressure Blood Pressure Findings: Elevated blood pressure Blood Pressure Disposition: further management by hospitalist DO Narrative This is an 83-year-old female who presents to the ED with a chief complaint of generalized weakness and dizziness and feels like she is going to fall. The patient states that she feels like she is too weak to stand up. She states that her symptoms started at 5 AM this morning. She was just discharged from the hospital yesterday. She was discharged with pneumonia. The patient's physical exam reveals bilateral wheezes and rhonchi. Her heart rate is tachycardic with a heart rate of 120. Oxygen saturations are 89% on room air. She was not sent home with oxygen. The patient denies that the room spins. She does not have a fever here. A chest x-ray reveals an opacity in the left lung that is been previously seen. EKG shows a sinus tach at a rate of 107 with a PVC. White blood cell count is slightly higher than yesterday at 21,000. Hemoglobin is stable at 8.5. Troponin was negative. Flu swab was negative. The patient was treated with IV fluids, DuoNeb treatment as well as Levaquin IV. She will be seen by the hospitalist for further evaluation and care. Impression & Plan Pneumonia, Weakness, Hypoxia Discharge Plan Visit Data *Final* Discharge Date/Time: 06/25/19 11:16 Chief Complaint: Dizziness Stated Complaint: dizzy/nausea ED Provider: Hilton Chan Discharge Problem: Pneumonia, Weakness, Hypoxia Patient Disposition: Being Evaluated by Hospitalist Discharge Instructions Interventions: ED Discharge Assessment Last Done: 06/25/19 11:16 Discharge Problem: Pneumonia Qualifiers: Pneumonia type: due to unspecified organism Laterality: unspecified laterality Lung location: unspecified part of lung Qualified Code(s): J18.9 - Pneumonia, unspecified organism The scribe's documentation has been prepared under my direction and personally reviewed by me in its entirety. I confirm that the note above accurately reflects all work, treatment, procedures, and medical decision making performed by me.
[2019-06-25] MEDS ORDERED: ACETAMINOPHEN 325 MG TAB PO PRN (10:17)
[2019-06-25] MEDS ORDERED: ALUMINUM/MAGNESIUM SUSP 30 ML UDC PO PRN (10:17)
[2019-06-25] MEDS ORDERED: POLYETHYLENE (MIRALAX) 17 GM PACK PO PRN (10:17)
[2019-06-25] MEDS ORDERED: MAGNESIUM HYDROXIDE SUSP 30 ML UDC PO PRN (10:17)
[2019-06-25 10:20] LABS: Basophils # (auto) 0.01 K/uL (0-0.2); Eosinophils # (auto) 0.02 K/uL (0-0.5); Eosinophils % (auto) 0.1 %; Hematocrit (blood only) 27.9 % (37-47); Hemoglobin 8.5 g/dL (12.0-16.0); Immature Granulocytes # (auto) 0.11 K/uL (0.00-0.02); Immature Granulocytes % (auto) 0.5 %; Lymphocytes % (auto) 2.8 %; Mean Corpuscular Hemoglobin 26.1 pg (25-34); Mean Corpuscular Hgb Conc 30.5 g/dL (32-36); Mean Corpuscular Volume 85.6 fL (80-100); Mean Platelet Volume 8.9 fL (7.4-10.4); Monocytes % (auto) 6.6 %; Neutrophils # (auto) 19.22 K/uL (1.4-6.5); Platelet Count 452 K/uL (130-400); RDW Coefficient of Variation 19.7 % (11.5-14.5); RDW Standard Deviation 61.9 fL (36.4-46.3); Red Blood Count 3.26 M/uL (4.2-5.4); White Blood Count 21.36 K/uL (4.8-10.8)
[2019-06-25] MEDS ORDERED: ONDANSETRON 4 MG TAB PO PRN (10:23)
--- NOTE | 2019-06-25 10:35 | History & Physical Report ---
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 Hypoxia and weakness in the setting of history of stage IV NSCLC: - Followed by oncology every 2 months although last dose of chemo 06/2018. Diagnosed with stage 4 cancer about 4 years ago. - On discharge yesterday was vehemently against both acute rehab and home health services, agreeing only to have home PT come a few times a week. - Presentation of weakness and dizziness likely vasovagal reaction while defecating; pt reports profound dizziness while having a BM twice since discharge. also reports pt did not eat or drink fluids well yesterday upon going home. BP normotensive on arrival with intermittent tachycardia and tachypnea. - CTPE 06/21 negative and pt received AC through last admission. - CXR ordered which shows mild reaccumulation of pleural effusion; BCx drawn x2 today, pt was on appropriate Abx therapy on discharge for community acquired pneumonia; MRSA nares 06/22/19 were negative. - While this patient would benefit from palliative care services and it was recommended that she enter acute rehab, they were against it last admission. Given this patient's deconditioning and inability to get up to go to the b athroom at home without help will reorder PT/OT evaluations and further discuss SNF with the family. - Wean oxygen as tolerated. Left superior lobe post-obstructive pneumonia with worsening leukocytosis: - Pt discharged 06/24/2019 on azithromycin/augmentin for CAP with no oxygen demand to complete both antibiotics 06/26/2019. MRSA nares 06/22 negative. - Pt afebrile but with increasing leukocytosis 17 -> 19 -> 21 the last two days. Will continue to monitor. - pleural fluid gram stain from last admission negative and preliminary culture showing no growth to date; acid fast bacilli smear pending. - BCx x2 taken this AM while on antibiotic therapy for CAP. - CXR ordered which shows mild reaccumulation of pleural effusion but no worsening pneumonia. - UA with reflex ordered to rule out other sources of infection. - follow closely Pleural effusion In the setting of metastatic lung cancer, with associated pleural effusion s/p thoracentesis by Dr. Vargas. - Dr. Vargas consulted and appreciate recommendations: repeat CXR in AM, could consider PleurX however small reaccumulation unlikely to be total cause of hypoxia. Concern at this point for malignant effusion. Continue current pneumonia treatment. Hyponatremia Na 135 on admission, up from low 130s last week. - Patient is asymptomatic. - Follow BMP daily. Chronic anemia, likely 2/2 chronic disease state Hgb 8.5 on admission; was 9.9 one week ago. - No signs of bleeding. Patient is on iron at home; will continue inpatient. Continue to trend CBC. Hypertension - Pt was hypertensive on arrival however now is normotensive despite not getting home hypertension medications this AM. - Hold losartan for now and will monitor BP. Hyperlipidemia Continue simvastatin. Code Status: DNR/DNI DVT ppx: Heparin 5000u SQ BID FEN/GI: Heart healthy diet Dispo: Med/Surg (2) Lumbar radiculopathy: (3) Hypertension: (4) Hypercholesterolemia: (5) Venous stasis dermatitis: (6) Pneumonia: (7) Pleural effusion: (8) Anemia: (9) Leukocytosis: History of Present Illness Chief Complaint: weakness and hypoxia Primary Care Provider: Malachi Caldwell MD 83 yo F PMHx metastatic lung cancer, hyperlipidemia, hypertension presents with weakness and found to be hypoxic after discharge from [facility] 06/24/2019. Last admission was treated for community acquired pneumonia and deescalated to augmentin/azithromycin to be completed 06/26. Had pleural effusion drained by Dr. Vargas last admission with improvement in SOB. Was sent home without supplemental oxygen as she was not requiring it. Was however recommended to go to SNF for acute rehab which was refused by patient and . On interview today she states that when she went home yesterday she felt weak, but this morning after 2 bowel movements felt profoundly weak and could not stand up without help. No shortness of breath, chest pain, nausea, vomiting, fevers or chills. In ED started on levaquin, CXR performed which showed mild increase in size of pleural effusion on left side. Allergies Allergy/AdvReac Type Severity Reaction Status Date / Time IND[place] Inhibitors Allergy Mild COUGH Verified 06/25/19 09:38 erythromycin base Allergy Mild NAUSEA Verified 06/25/19 09:38 amoxicillin [From Augmentin] Allergy cheek and Verified 06/25/19 09:38 ankle swelling clavulanic acid Allergy cheek and Verified 06/25/19 09:38 [From Augmentin] ankle swelling Home Medications Home Medications Medication Instructions Recorded Confirmed Type acetaminophen 500 mg tablet 500 mg PO QID tab 03/18/19 06/25/19 History calcium carbonate 600 mg (1,500 1 tab PO BID tab 03/18/19 06/25/19 History mg)-vitamin D3 200 unit tablet folic acid 800 mcg tablet 0.8 mg PO HS tab 03/18/19 06/25/19 History losartan 100 mg tablet 100 mg PO QAM #90 tab 03/18/19 06/25/19 History simvastatin 10 mg tablet 10 mg PO HS #90 tab 03/18/19 06/25/19 History Cbd Salve 1 applic TOPICAL QAM 06/21/19 06/25/19 History ferrous sulfate [iron] 325 mg PO QDL 06/21/19 06/25/19 History amoxicillin-pot clavulanate 1 tab PO BIDM 3 Days #6 tab 06/24/19 06/25/19 Rx azithromycin [Zithromax] 500 mg PO QAM 2 Days #4 tab 06/24/19 06/25/19 Rx Past Med/Surg History Medical History Hypercholesterolemia (Acute) Hypertension (Acute) Lumbar radiculopathy (Acute) Non-small cell carcinoma of lung, stage 4 (Acute) Surgical History History of lung biopsy Family History Father Myocardial infarction Mother Liver cancer Uterine cancer Social History Preferred Language: British Communication Ability: Effective Visual Impairment: No Limitations Hearing Ability: Normal Medical Records Administrator Required: No Beliefs That Will Affect Care: None marital status: Current Living Situation: Spouse current occupational status: retired Other Information That Helps Us Care for You: No Feels Safe at Home: Yes Safety Concerns: Feels Safe At This Time Smoking Status: Former smoker Hx Alcohol Use: Yes Alcohol type: wine Hx Substance Use: No Physical Activity Frequency: Daily Seatbelt Use: always Review of Systems Constitutional: + weakness; no fever and no chills Respiratory: no cough, no dyspnea and no wheezing Cardiovascular: + syncope (presyncopal sensation at home while defecating); no chest pain and no edema Gastrointestinal: no abdominal pain, no nausea, no vomiting, no constipation and no diarrhea/loose stools Genitourinary: no dysuria, no urinary frequency and no hematuria Neurologic: no headache(s) Physical Exam Constitutional: WD/WN, vitals as above + thin Eyes: PERRL, conjunctivae normal, anicteric sclerae ENMT: external ear and nose normal, oropharynx normal (mucous membranes moist) Neck: normal visual inspection and trachea midline Respiratory: normal respiratory effort Auscultation: + rhonchi (bilateral, intermittent) Cardiovascular: RRR, no murmur, no edema Chest (Breasts): Chest: + vascular access device or port (chemo port present on L upper chest) Gastrointestinal (Abdomen): Inspection/Auscultation: abdomen normal to inspection; abdomen not distended Skin: no rashes, warm and dry Psychiatric: Orientation: alert and oriented x 3 Affect: + flat affect Results & Data Vital Signs (Past 12 Hours) Vital Signs Temp Pulse Pulse Resp BP Pulse Ox 06/25/19 10:23 98 H 18 97 06/25/19 10:14 98 06/25/19 09:10 37 C 120 H 22 165/84 H 89 L Laboratory Results Laboratory Results - last 24 hr 06/25/19 06/25/19 06/25/19 10:10 10:10 10:10 WBC 21.36 H RBC 3.26 L Hgb 8.5 L Hct 27.9 L MCV 85.6 MCH 26.1 MCHC 30.5 L RDW Std Deviation 61.9 H RDW Coeff of Jefe 19.7 H Plt Count 452 H MPV 8.9 Immature Gran % (Auto) 0.5 Neut % (Auto) 90.0 Lymph % (Auto) 2.8 [place] % (Auto) 6.6 Eos % (Auto) 0.1 Baso % (Auto) 0.0 Immature Gran # (Auto) 0.11 H Neut # (Auto) 19.22 H Lymph # (Auto) 0.60 L [place] # (Auto) 1.40 H Eos # (Auto) 0.02 Baso # (Auto) 0.01 PT 11.8 INR 1.2 H APTT 33.4 H PTT Ratio 1.2 Sodium 134 L Potassium 4.1 Chloride 102 Carbon Dioxide 26 Anion Gap 6.0 BUN 25 H Creatinine 1.09 Est Cr Clr Drug Dosing 29.5 Est GFR ( Amer) 54.4 Est GFR (Non-Af Amer) 46.9 BUN/Creatinine Ratio 22.6 H Glucose 128 H Calcium 9.1 Total Bilirubin 0.4 AST 116 H ALT 76 Alkaline Phosphatase 97 Troponin I < 0.015 Total Protein 6.2 L Albumin 1.5 L Globulin 4.7 H Albumin/Globulin Ratio 0.3 L Influenza Type A (PCR) Influenza Type B (PCR) 06/25/19 10:10 WBC RBC Hgb Hct MCV MCH MCHC RDW Std Deviation RDW Coeff of Jefe Plt Count MPV Immature Gran % (Auto) Neut % (Auto) Lymph % (Auto) [place] % (Auto) Eos % (Auto) Baso % (Auto) Immature Gran # (Auto) Neut # (Auto) Lymph # (Auto) [place] # (Auto) Eos # (Auto) Baso # (Auto) PT INR APTT PTT Ratio Sodium Potassium Chloride Carbon Dioxide Anion Gap BUN Creatinine Est Cr Clr Drug Dosing Est GFR ( Amer) Est GFR (Non-Af Amer) BUN/Creatinine Ratio Glucose Calcium Total Bilirubin AST ALT Alkaline Phosphatase Troponin I Total Protein Albumin Globulin Albumin/Globulin Ratio Influenza Type A (PCR) Neg for Influ A Influenza Type B (PCR) Neg for Influ B Code Status & VTE Plan Code Status DNR/DNI VTE Prophylaxis Plan VTE Prophylaxis will be ordered: Yes Supervising Physician Co-Signing Physician Notes Resident Physician Supervision Note: I independently interviewed and examined the patient and verified the zhou history and physical, reviewed labs and image studies, discussed the case with the resident Dr. Desouza and agree with the findings and care plan. Resident Activity Tracking Resident Involvement: Resident Care Provided Care Provided: Adult Hospital Medicine (1) Anemia Anemia type: other cause Other causes of anemia: other cause, not classified Qualified Code(s): D64.89 - Other specified anemias (2) Leukocytosis Leukocytosis type: unspecified Qualified Code(s): D72.829 - Elevated white blood cell count, unspecified (3) Pneumonia Laterality: right Lung location: middle lobe of lung Pneumonia type: due to unspecified organism Qualified Code(s): J18.9 - Pneumonia, unspecified organism (4) Venous stasis dermatitis Laterality: bilateral Qualified Code(s): I87.2 - Venous insufficiency (chronic) (peripheral)
[2019-06-25 10:37] LABS: Alanine Aminotransferase 76 U/L (12-78); Albumin Level 1.5 gm/dl (3.4-5.0); Aspartate Aminotransferase 116 U/L (15-37); BUN Creatinine Ratio 22.6 (10-20); Blood Urea Nitrogen 25 mg/dl (7-18); Calcium 9.1 mg/dl (8.5-10.1); Carbon Dioxide 26 mmol/L (21-32); Chloride 102 mmol/L (98-107); Creatinine Clr Calc Pharmacy 29.5 ml/min; Est GFR (African American) 54.4; Est GFR (Non-African American) 46.9; Glucose 128 mg/dl (70-99); Potassium 4.1 mmol/L (3.5-5.1); Sodium 134 mmol/L (136-145)
[2019-06-25 10:40] LABS: INR 1.2 (0.9-1.1); Partial Thromboplastin Ratio 1.2; Partial Thromboplastin Time 33.4 Seconds (21.0-31.0); Prothrombin Time 11.8 Seconds (9.0-12.0)
[2019-06-25 10:42] LABS: Albumin Globulin Ratio 0.3 (0.9-2); Alkaline Phosphatase 97 U/L (45-117); Bilirubin,Total 0.4 mg/dl (0.2-1); Globulin 4.7 gm/dl (2.5-4.0); Total Protein 6.2 gm/dl (6.4-8.2); Troponin I < 0.015 ng/ml (0-0.045)
[2019-06-25 11:03] LABS: Influenza A virus by PCR Neg for Influ A (Neg); Influenza B virus by PCR Neg for Influ B (Neg)
--- NOTE | 2019-06-25 11:14 | XRay Report ---
XR chest 1V portable CLINICAL HISTORY: 83 years-old Female presenting with Dyspnea. TECHNIQUE: Portable upright AP view of the chest was obtained. COMPARISON: 06/23/2019. FINDINGS: Left subclavian Mediport has been accessed and terminates in the lower SVC. Atherosclerosis of the ao rtic arch. Cardiac silhouette mildly enlarged. Suture margins project over the left apex and midlung. Persistent dense left mid lung opacity and the smaller right apical opacity. Persistent small left p leural effusion, which is either increased in size or the left lung is less well aerated. Heterogeneo us radiolucency with mild hyperinflation of the right lung. No pneumothorax. Osteopenia. Degenerative changes and mild scoliosis of the spine. Upper abdomen normal. IMPRESSION: 1. Persistent dense left mid lung opacity and more limited right old opacity, which correlate with t he mass like areas of consolidation on recent CT from 06/21/2019. 2. Stable to increased left pleural effusion with worsened aeration of the left lung. 3. Redemonstration of postsurgical changes of the left lung. 4. No pneumothorax. ACT 112: Negative or not required by law. Electronically signed by: Cristino Allan M.D. 06/25/2019 11:13 AM
[2019-06-25] MEDS: FERROUS SULFATE 325 MG TAB PO SCH (14:09)
--- NOTE | 2019-06-25 14:28 | Electrocardiogram Report ---
Test Reason : Blood Pressure : / mmHG Vent. Rate : 107 BPM Atrial Rate : 107 BPM P-R Int : 132 ms QRS Dur : 082 ms QT Int : 302 ms P-R-T Axes : 078 075 061 degrees QTc Int : 403 ms Sinus tachycardia with occasional Premature ventricular complexes Low voltage QRS Poor R wave progression, consider anterior NE vs. lead placement vs. LVH Abnormal ECG When compared with ECG of 21-JUN-2019 12:35, Premature ventricular complexes are now Present Confirmed by Anthony Castillo ([id number]) on 06/25/2019 2:28:15 PM Referred By: REFERRED SELF Confirmed By:Anthony Castillo
[2019-06-25] MEDS: HEPARIN SOD 5,000 UNIT/0.5 ML VIAL SQ SCH (20:15)
[2019-06-25] MEDS: FOLIC ACID 400 MCG TAB PO SCH (20:15)
[2019-06-25] MEDS: SIMVASTATIN 10 MG TAB PO SCH (20:15)
[2019-06-26 04:11] LABS: Appearance Urine Cloudy (Clear); Bacteria Urine Automated Negative (Negative); Bilirubin Urine Negative (Negative); Blood Urine Trace (Negative); Color Urine Yellow; Epithelial Cell Urine Auto >30 /lpf (0-5); Glucose Urine UA 1+ (Negative); Ketones Urine Negative (Negative); Leukocyte Esterase Urine Negative (Negative); Nitrite Urine Negative (Negative); Protein Urine 2+ (Negative); RBC Urine Automated 0-4 /hpf (0-4); Specific Gravity Urine 1.018 (1.000-1.030); Urobilinogen Urine Negative (Negative); pH Urine 5.5 (4.5-7.5)
[2019-06-26 04:39] LABS: Renal Epithelial Cells Urine 0-5 /lpf (0-5)
[2019-06-26] MEDS: HEPARIN 100 UNIT/ML 5ML FLUSH FLUSH PRN ×2 (05:33→08:57)
[2019-06-26 05:52] LABS: Basophils # (auto) 0.01 K/uL (0-0.2); Basophils % (auto) 0.1 %; Eosinophils # (auto) 0.04 K/uL (0-0.5); Eosinophils % (auto) 0.3 %; Hematocrit (blood only) 26.9 % (37-47); Hemoglobin 8.2 g/dL (12.0-16.0); Immature Granulocytes # (auto) 0.06 K/uL (0.00-0.02); Immature Granulocytes % (auto) 0.4 %; Lymphocytes # (auto) 0.85 K/uL (1.2-3.4); Lymphocytes % (auto) 5.4 %; Mean Corpuscular Hemoglobin 26.3 pg (25-34); Mean Corpuscular Hgb Conc 30.5 g/dL (32-36); Mean Corpuscular Volume 86.2 fL (80-100); Mean Platelet Volume 8.9 fL (7.4-10.4); Monocytes # (auto) 0.98 K/uL (0.11-0.59); Monocytes % (auto) 6.3 %; Neutrophils # (auto) 13.72 K/uL (1.4-6.5); Neutrophils % (auto) 87.5 %; Platelet Count 420 K/uL (130-400); RDW Coefficient of Variation 19.8 % (11.5-14.5); RDW Standard Deviation 62.4 fL (36.4-46.3); Red Blood Count 3.12 M/uL (4.2-5.4); White Blood Count 15.66 K/uL (4.8-10.8)
[2019-06-26 06:14] LABS: BUN Creatinine Ratio 22.1 (10-20); Calcium 9.1 mg/dl (8.5-10.1); Creatinine Clr Calc Pharmacy 30.9 ml/min; Est GFR (African American) 57.5; Est GFR (Non-African American) 49.6; Potassium 4.1 mmol/L (3.5-5.1)
--- NOTE | 2019-06-26 07:40 | XRay Report ---
XR chest 1V portable CLINICAL HISTORY: pleural effusion COMPARISON STUDY: Chest CT June 21, 2019 and chest radiograph June 25, 2019. FINDINGS: Left subclavian [id number] is in place. Postoperative findings within the left lung are noted. Left upper lobe mass is again noted. Right upper lobe irregular nodules are noted. These corre spond to suspicious lesions on prior CT. A small to moderate left pleural effusion is unchanged. Ther e is a trace right pleural effusion. There is no evidence for pulmonary edema. IMPRESSION: 1. No change in a small to moderate left pleural effusion. 2. Redemonstration of the left upper lobe mass and right upper lobe irregular pulmonary nodules whic h are suspicious for neoplasms. ACT 112: Negative or not required by law. Electronically signed by: Jeff Rivera M.D. 06/26/2019 7:38 AM
[2019-06-26] MEDS: HEPARIN SOD 5,000 UNIT/0.5 ML VIAL SQ SCH ×2 (07:45→20:56)
--- NOTE | 2019-06-26 07:57 | Surgery Consultation ---
Date of Consultation June 26, 2019 Assessment & Plan (1) Pleural effusion: -review of imaging shows a small re-accumulation of fluid, however this does not appear to be enough to warrant anther thoracentesis -recommend continue to monitor the patient clinically along with serial CXRs -if serial imaging shows significant re-accumulation of pleural fluid will consider drainage procedure History of Present Illness Attending Physician: Randy Guerin DO History of Present Illness 83 year old female with hx. of metastatic lung cancer. She was seen by our service during her previous admission. She was noted to have a left pleural effusion and underwent thoracentesis on 06/22/19 for 55 cc fluid. Micro was (-) for growth and cytology was (-) for malignancy. Pt. notes she had some improvement noted in her breathing following this procedure. CXR the day after thoracentesis did not oscar significant re-accumulation of fluid and she was d/c to home. At home, the pt. noted lightheadedness and weakness to the point where she could not perform any activities without the admissions assistant of her , therefore she returned to the hospital. Allergies Allergy/AdvReac Type Severity Reaction Status Date / Time [place] Inhibitors Allergy Mild COUGH Verified 06/25/19 09:38 erythromycin base Allergy Mild NAUSEA Verified 06/25/19 09:38 amoxicillin [From Augmentin] Allergy cheek and Verified 06/25/19 09:38 ankle swelling clavulanic acid Allergy cheek and Verified 06/25/19 09:38 [From Augmentin] ankle swelling Home Medications Home Medications Medication Instructions Recorded Confirmed Type acetaminophen 500 mg tablet 500 mg PO QID tab 03/18/19 06/25/19 History calcium carbonate 600 mg (1,500 1 tab PO BID tab 03/18/19 06/25/19 History mg)-vitamin D3 200 unit tablet folic acid 800 mcg tablet 0.8 mg PO HS tab 03/18/19 06/25/19 History losartan 100 mg tablet 100 mg PO QAM #90 tab 03/18/19 06/25/19 History simvastatin 10 mg tablet 10 mg PO HS #90 tab 03/18/19 06/25/19 History Cbd Salve 1 applic TOPICAL QAM 06/21/19 06/25/19 History ferrous sulfate [iron] 325 mg PO QDL 06/21/19 06/25/19 History amoxicillin-pot clavulanate 1 tab PO BIDM 3 Days #6 tab 06/24/19 06/25/19 Rx azithromycin [Zithromax] 500 mg PO QAM 2 Days #4 tab 06/24/19 06/25/19 Rx Patient History Medical History Hypercholesterolemia (Acute) Hypertension (Acute) Lumbar radiculopathy (Acute) Non-small cell carcinoma of lung, stage 4 (Acute) Surgical History History of lung biopsy Family History Father Myocardial infarction Mother Liver cancer Uterine cancer Social History Preferred Language: Lao Communication Ability: Effective Visual Impairment: No Limitations Hearing Ability: Normal Cafeteria [employer] Required: No Beliefs That Will Affect Care: None marital status: Current Living Situation: Spouse current occupational status: retired Other Information That Helps Us Care for You: No Feels Safe at Home: Yes Safety Concerns: Feels Safe At This Time Smoking Status: Former smoker Hx Alcohol Use: Yes Alcohol type: wine Hx Substance Use: No Physical Activity Frequency: Daily Seatbelt Use: always Review of Systems Constitutional: + fatigue and + weakness; no chills Respiratory: no dyspnea (no dyspnea at rest ) Cardiovascular: + lightheadedness; no chest pain Gastrointestinal: no nausea and no vomiting Neurologic: + generalized weakness; no localized weakness Physical Exam Constitutional: + thin; no acute distress Neck: trachea midline Respiratory: normal respiratory effort; no respiratory distress and no labored breathing BS are decreased at bases, left slightly greater than right Cardiovascular: Rate/Rhythm: regular rate and regular rhythm Vessels: dorsalis pedis pulses present Gastrointestinal (Abdomen): Inspection/Auscultation: abdomen not distended Percussion/Palpation: abdomen soft; abdomen nontender Musculoskeletal: no calf tenderness Neurologic: moves all extremities Psychiatric: A+Ox3, euthymic affect Results & Data Vital Signs (Past 12 Hours) Vital Signs Temp Pulse Resp BP Pulse Ox 06/26/19 07:41 36.9 C 100 H 18 134/76 97 06/25/19 23:00 36.8 C 93 H 18 122/72 96 PG Care Time/CCT Total # of Minutes Spent Total Time Spent with Patient: Total time spent is greater than 50% in coordination of care (as documented) at patient's floor/unit and/or counseling patient:
--- NOTE | 2019-06-26 10:04 | Hospitalist Progress Note ---
Date of Service June 26, 2019 Assessment & Plan (1) Non-small cell carcinoma of lung, stage 4: 83-year-old female with a past medical history of stage IV, metastatic lung adenocarcinoma admitted on 06/21/19 for SOB, found to have left superior lobe obstructive process consistent with a community-acquired PNA and associated effusion s/p thoracentesis, discharged on 06/24/19, readmitted on 06/25/19 for profound weakness. Left superior lobe post-obstructive pneumonia - initially visualized on chest CT 06/21/19 - patient was discharged on 06/24/19 with PO Augmentin and Azithromax - WBC count on day of readmission (06/25/19) showed elevation to 21, up from 19 on day of discharge (06/24/19) - Levoquin started 06/25/19; WBC down to 15 today (06/26/19) - Influenza testing and MRSA swab neg from recent admission - blood cultures obtained 06/25/19: pending - pleural fluid from thoracentesis done 06/22/19 gram stain negative and culture showing no growth to date; acid fast bacilli smear negative, culture pending - PT recommended acute rehab stay, case management working to arrange Pleural effusion initially visualized on chest CT 06/21/19; s/p thoracentesis by Dr. Vargas on 06/22 - see pleural fluid analysis above - CXR on readmission (06/25/19) showed small re-accumulation of fluid - CT consulted: repeat thoracentesis not warranted at this time History of non-small carcinoma lung, stage IV followed by oncology every 2 months although last dose of chemo 06/2018 - offered palliative care consult; patient declines at present but will continue to consider Hyponatremia Na 134 on day of readmission 06/25/19, up to 131 on 06/21/18 - patient is asymptomatic - work up from recent admission was not consistent with SIADH - follow BMP daily Chronic anemia, likely 2/2 chronic disease state hgb 8.2 today; was 9.9 on 06/21/18 - No signs or symptoms of bleeding Patient is on home iron supplement Continue to trend CBC Hypertension Hold losartan - BP at goal at 134/76 Hyperlipidemia Continue simvastatin Code Status: DNR/DNI DVT ppx: Lovenox 30mg, SQ, daily FEN/GI: Heart healthy diet Dispo: Med/Surg; PT/OT ordered (2) Lumbar radiculopathy: (3) Hypertension: (4) Hypercholesterolemia: (5) Venous stasis dermatitis: (6) Pneumonia: (7) Pleural effusion: (8) Anemia: (9) Leukocytosis: Supervising Physician Co-Signing Physician Notes I personally examined the patient and verified all zhou points of history and exam, discussed case, and agree with decision making with Dr Love. Breathing feeling better. Still feeling weak. Trying to drink reasonably well. A little bit dizzy whenever she standing but better than before. Vitals noted, in general she is awake and alert pleasant no distress. HEENT normocephalic atraumatic mucous membranes are moist. Breathing is unlabored no accessory muscle use good effort. Skin shows no rashes no pallor or icterus. Neuro shows no focal deficits. Weakness/deconditioningPT/OT eval and treat, hopefully she will qualify for some sort of rehab options this time. Certainly does not appear to be strong enough to be safe at home based on her recent history. Lung cancer with probable obstructive pneumonia related to cancerous massimproving after re-treatment with Levaquin. I do harbor concerns about whether or not this will be a recurring problem given the obstruction of the mass. Continue to follow clinically. Dispositionsafe/stable on medical, await formal input from PT/OT and case management in regards to disposition options. Otherwise as above. Subjective No acute events overnight. Eating although her appetite is diminished. Feels profoundly weak. Breathing is okay at rest, but worsens with activity Review of Systems Constitutional: + weakness Respiratory: + dyspnea on exertion; no cough Cardiovascular: + lightheadedness Physical Exam Constitutional: WD/WN, vitals as above + thin Eyes: PERRL, conjunctivae normal, anicteric sclerae ENMT: external ear and nose normal, oropharynx normal Neck: normal visual inspection and trachea midline Respiratory: normal respiratory effort; no labored breathing and no cough Auscultation: + rhonchi (present throughout L lung aguilar); no crackles, no wheezes and no pleural rub moving air well Cardiovascular: RRR, no murmur, no edema Heart Sounds: normal S1 and normal S2 Chest (Breasts): Chest: + vascular access device or port ((chemo port present on L upper chest)) Gastrointestinal (Abdomen): normal bowel sounds, soft, nontender, no hepatosplenomegaly Skin: no rashes, warm and dry Psychiatric: Orientation: alert and oriented x 3 Affect: + flat affect Results & Data Vital Signs (Past 12 Hours) Vital Signs Temp Pulse Resp BP Pulse Ox 06/26/19 07:41 36.9 C 100 H 18 134/76 97 06/25/19 23:00 36.8 C 93 H 18 122/72 96 Resident Activity Tracking Resident Involvement: Resident Care Provided Care Provided: Adult Hospital Medicine (1) Anemia Anemia type: other cause Other causes of anemia: other cause, not classified Qualified Code(s): D64.89 - Other specified anemias (2) Leukocytosis Leukocytosis type: unspecified Qualified Code(s): D72.829 - Elevated white blood cell count, unspecified (3) Pneumonia Laterality: right Lung location: middle lobe of lung Pneumonia type: due to unspecified organism Qualified Code(s): J18.9 - Pneumonia, unspecified organism (4) Venous stasis dermatitis Laterality: bilateral Qualified Code(s): I87.2 - Venous insufficiency (chronic) (peripheral)
[2019-06-26] MEDS: FERROUS SULFATE 325 MG TAB PO SCH (13:05)
--- NOTE | 2019-06-26 13:43 | Surgery Progress Note ---
Date of Service June 26, 2019 Assessment & Plan (1) Pleural effusion: This fluid is not greatly changed. While we could potentially offer a thoracentesis it will be short-lived I do not think a Pleurx is indicated here. We will continue to follow along. Present on Admission?: Yes Subjective The patient was very "weak" but is better now. Physical Exam Physical Exam: He has decreased breath sounds on the left side but actually looks a bit better to me. Results & Data Vital Signs (Past 12 Hours) Vital Signs Temp Pulse Resp BP Pulse Ox 06/26/19 07:41 36.9 C 100 H 18 134/76 97 PG Care Time/CCT Total # of Minutes Spent Total Time Spent with Patient: Total time spent is greater than 50% in coordination of care (as documented) at patient's floor/unit and/or counseling patient:
--- NOTE | 2019-06-26 17:02 | Billing Data ---
Date of Service June 26, 2019 Coding Level of Care Code 97694 Subseq Hosp Care Lvl 3
[2019-06-26] MEDS: SIMVASTATIN 10 MG TAB PO SCH (20:56)
[2019-06-26] MEDS: FOLIC ACID 400 MCG TAB PO SCH (20:56)
[2019-06-27] MEDS: HEPARIN 100 UNIT/ML 5ML FLUSH FLUSH PRN (06:00)
[2019-06-27 06:24] LABS: Basophils # (auto) 0.01 K/uL (0-0.2); Basophils % (auto) 0.1 %; Eosinophils # (auto) 0.04 K/uL (0-0.5); Eosinophils % (auto) 0.2 %; Hematocrit (blood only) 27.9 % (37-47); Hemoglobin 8.6 g/dL (12.0-16.0); Immature Granulocytes # (auto) 0.09 K/uL (0.00-0.02); Immature Granulocytes % (auto) 0.5 %; Lymphocytes # (auto) 0.89 K/uL (1.2-3.4); Mean Corpuscular Hemoglobin 26.6 pg (25-34); Mean Corpuscular Hgb Conc 30.8 g/dL (32-36); Mean Corpuscular Volume 86.4 fL (80-100); Mean Platelet Volume 9.3 fL (7.4-10.4); Monocytes # (auto) 1.46 K/uL (0.11-0.59); Monocytes % (auto) 8.1 %; Neutrophils # (auto) 15.43 K/uL (1.4-6.5); Neutrophils % (auto) 86.1 %; Platelet Count 441 K/uL (130-400); RDW Coefficient of Variation 19.4 % (11.5-14.5); RDW Standard Deviation 61.3 fL (36.4-46.3); Red Blood Count 3.23 M/uL (4.2-5.4); White Blood Count 17.92 K/uL (4.8-10.8)
[2019-06-27 07:02] LABS: Potassium 3.9 mmol/L (3.5-5.1)
[2019-06-27 07:03] LABS: BUN Creatinine Ratio 23.4 (10-20); Creatinine Clr Calc Pharmacy 34.2 ml/min; Est GFR (Non-African American) 56.1
[2019-06-27] MEDS: HEPARIN SOD 5,000 UNIT/0.5 ML VIAL SQ SCH (09:02)
[2019-06-27] MEDS ORDERED: levoFLOXacin 750 MG TAB PO SCH (11:00)
--- NOTE | 2019-06-27 11:45 | Discharge Summary ---
Date of Service June 27, 2019 Admission HPI Per Admitting Provider 83 yo F PMHx metastatic lung cancer, hyperlipidemia, hypertension presents with weakness and found to be hypoxic after discharge from [facility] 06/24/2019. Last admission was treated for community acquired pneumonia and deescalated to augmentin/azithromycin to be completed 06/26. Had pleural effusion drained by Dr. Vargas last admission with improvement in SOB. Was sent home without supplemental oxygen as she was not requiring it. Was however recommended to go to SNF for acute rehab which was refused by patient and . On interview today she states that when she went home yesterday she felt weak, but this morning after 2 bowel movements felt profoundly weak and could not stand up without help. No shortness of breath, chest pain, nausea, vomiting, fevers or chills. In ED started on levaquin, CXR performed which showed mild increase in size of pleural effusion on left side. Admission Exam Per Admitting Provider Constitutional: WD/WN, vitals as above + thin Eyes: PERRL, conjunctivae normal, anicteric sclerae ENMT: external ear and nose normal, oropharynx normal (mucous membranes moist) Neck: normal visual inspection and trachea midline Respiratory: normal respiratory effort Auscultation: + rhonchi (bilateral, intermittent) Cardiovascular: RRR, no murmur, no edema Chest (Breasts): Chest: + vascular access device or port (chemo port present on L upper chest) Gastrointestinal (Abdomen): Inspection/Auscultation: abdomen normal to inspection; abdomen not distended Skin: no rashes, warm and dry Psychiatric: Orientation: alert and oriented x 3 Affect: + flat affect Principal Diagnosis Pneumonia Discharge Exam Constitutional WD/WN, vitals as above + thin Eyes PERRL, conjunctivae normal, anicteric sclerae ENMT external ear and nose normal, oropharynx normal Neck normal visual inspection and trachea midline Respiratory normal respiratory effort; no labored breathing and no cough Auscultation: + rhonchi (present throughout L lung aguilar); no crackles, no wheezes and no pleural rub Cardiovascular RRR, no murmur, no edema Heart Sounds: normal S1 and normal S2 Chest (Breasts) Chest: + vascular access device or port ((chemo port present on L upper chest)) Gastrointestinal (Abdomen) normal bowel sounds, soft, nontender, no hepatosplenomegaly Skin no rashes, warm and dry Psychiatric Orientation: alert and oriented x 3 Affect: + flat affect Discharge Data Allergies Allergy/AdvReac Type Severity Reaction Status Date / Time [place] Inhibitors Allergy Mild COUGH Verified 06/25/19 09:38 erythromycin base Allergy Mild NAUSEA Verified 06/25/19 09:38 amoxicillin [From Augmentin] Allergy cheek and Verified 06/25/19 09:38 ankle swelling clavulanic acid Allergy cheek and Verified 06/25/19 09:38 [From Augmentin] ankle swelling Consultations 06/25/19 09:44 ED Decision to Admit Stat 06/25/19 10:22 Consult Case Management - Discharge Planning Routine 06/25/19 12:20 Consult Thoracic Surgery Routine Hospital Course (1) Non-small cell carcinoma of lung, stage 4: 83-year-old female with a past medical history of stage IV, metastatic lung adenocarcinoma admitted on 06/21/19 for SOB, found to have left superior lobe obstructive process consistent with a community-acquired PNA and associated effusion s/p thoracentesis, discharged on 06/24/19, readmitted on 06/25/19 for profound weakness. Left superior lobe post-obstructive pneumonia - initially visualized on chest CT 06/21/19 - patient was discharged on 06/24/19 with PO Augmentin and Azithromax - WBC count on day of readmission (06/25/19) showed elevation to 21, up from 19 on day of discharge (06/24/19) - Levoquin 750 mg, daily started 06/25/19; continue for 10 days upon discharge. - Influenza testing and MRSA swab neg from recent admission - blood cultures obtained 06/25/19: no growth to date - pleural fluid from thoracentesis done 06/22/19 gram stain negative and culture showing no growth to date; acid fast bacilli smear negative, culture pending - consider referral to pulmonology vs. cardiothoracic surgery for possible bronchoscopy + stent placement to relieve obstruction (secondary to cancer) that is likely serving as a nidus for reinfection of lung tissue Pleural effusion initially visualized on chest CT 06/21/19; s/p thoracentesis by Dr. Vargas on 06/22 - see pleural fluid analysis above - CXR on readmission (06/25/19) showed small re-accumulation of fluid - CT consulted: repeat thoracentesis not warranted at this time History of non-small carcinoma lung, stage IV followed by oncology every 2 months although last dose of chemo 06/2018 - offered palliative care consult; patient declines at present but will continue to consider Hyponatremia Na 134 on day of readmission 06/25/19, up to 131 on 06/21/18 - patient is asymptomatic - work up from recent admission was not consistent with SIADH - likely patient's baseline Chronic anemia, likely 2/2 chronic disease state hgb 8.4 today; was 9.9 on 06/21/18 - No signs or symptoms of bleeding Patient is on home iron supplement Continue to trend CBC Hypertension - continue home losartan - BP today 151/68 Hyperlipidemia Continue simvastatin (2) Lumbar radiculopathy: (3) Hypertension: (4) Hypercholesterolemia: (5) Venous stasis dermatitis: (6) Pneumonia: (7) Pleural effusion: (8) Anemia: (9) Leukocytosis: Total Time Total Time Spent Total Time Spent (In Minutes): <30 Discharge Plan Discharge Items Patient Disposition: Transfer Inpatient Rehab Fac Reason For Visit: DECONDITIONING,WEAKNESS Discharge Diagnosis: Post-Obstructive Pneumonia Condition on Discharge: Fair Activity: Resume your previous activity Non-emergency contact: Primary Care Provider and Oncologist Call non-emergency contact if: your symptoms worsen Follow-up/Referrals: ProMalachi MD [Primary Care Provider] - Diet: Heart Healthy Addtl Attending Provider Instructions: 83-year-old female with a past medical history of stage IV, metastatic lung adenocarcinoma admitted on 06/21/19 for SOB, found to have left superior lobe obstructive process consistent with a community-acquired PNA and associated effusion s/p thoracentesis, discharged on 06/24/19, readmitted on 06/25/19 for profound weakness. Left superior lobe post-obstructive pneumonia - initially visualized on chest CT 06/21/19 - patient was discharged on 06/24/19 with PO Augmentin and Azithromax - WBC count on day of readmission (06/25/19) showed elevation to 21, up from 19 on day of discharge (06/24/19) - Levoquin 750 mg, daily started 06/25/19; continue for 10 days upon discharge. - Influenza testing and MRSA swab neg from recent admission - blood cultures obtained 06/25/19: no growth to date - pleural fluid from thoracentesis done 06/22/19 gram stain negative and culture negative; acid fast bacilli smear negative, culture pending -- consider referral to pulmonology vs. cardiothoracic surgery for possible bronchoscopy + stent placement to relieve obstruction (secondary to cancer) that is likely serving as a nidus for reinfection of lung tissue Pleural effusion initially visualized on chest CT 06/21/19; s/p thoracentesis by Dr. Vargas on 06/22 - see pleural fluid analysis above - CXR on readmission (06/25/19) showed small re-accumulation of fluid - CT consulted: repeat thoracentesis not warranted at this time History of non-small carcinoma lung, stage IV followed by oncology every 2 months although last dose of chemo 06/2018 - offered palliative care consult; patient declines at present but will continue to consider Hyponatremia Na 134 on day of readmission 06/25/19, up from 131 on 06/21/18 - patient is asymptomatic - work up from recent admission was not consistent with SIADH - likely patient's baseline Chronic anemia, likely 2/2 chronic disease state hgb 8.4 today; was 9.9 on 06/21/18 - No signs or symptoms of bleeding Patient is on home iron supplement Continue to trend CBC Hypertension - continue home losartan Hyperlipidemia Continue simvastatin Pending Studies at Discharge: No Stand-Alone Forms: My [facility] Apply Financials Limited Skilled Items Patient informed of condition?: Yes DNR: Yes Discharge Level of Care: Acute rehab Communicable Disease: No Discharge Prognosis: Stable Lines: None Urinary Catheter: No Medications and DC Order Prescriptions: New levofloxacin 750 mg Tablet 750 mg PO DAILY 10 Days Qty: 10 RF: 0 Continued acetaminophen 500 mg tablet 500 mg PO QID RF: 0 calcium carbonate-vitamin D3 600 mg(1,500mg) -200 unit tablet 1 tab PO BID RF: 0 folic acid 800 mcg tablet 0.8 mg PO HS RF: 0 losartan [Cozaar] 100 mg tablet 100 mg PO QAM Qty: 90 RF: 0 simvastatin 10 mg tablet 10 mg PO HS Qty: 90 RF: 0 ferrous sulfate [iron] 325 mg (65 mg iron) Tablet 325 mg PO QDL RF: 0 Cbd Salve 1 applic topical QAM RF: 0 Discontinued azithromycin [Zithromax] 250 mg Tablet 500 mg PO QAM 2 Days Qty: 4 RF: 0 amoxicillin-pot clavulanate 500-125 mg Tablet 1 tab PO BIDM 3 Days Qty: 6 RF: 0 Discharge Orders: Discharge Order (Routine); Ordered 06/27/19 Ordered By: Chanel Love Admission Data Admit Date/Time: 06/25/19 10:18 Attending Provider: Randy Guerin Admit Provider: Ngozi Desouza Primary Care Provider: Malachi Caldwell Other Providers: Grace Avitia ; Sammy Vargas ; Samantha Vanessa ; [facility], Other Interventions: Discharge Summary Assessment (RN) Last Done: 06/27/19 12:40 DC Date/Time DO NOT enter until pt leaves facility: 06/27/19 13:03 Supervising Physician Co-Signing Physician Notes I personally examined the patient and verified all zhou points of history and exam, discussed case, and agree with decision making with Dr Love. Breathing feeling better. Very weak. Discussed need to rehab. Discussed high probability of recurrent pnuemonia due to the mass- and therefore need for vigilance and follow up. Vitals noted, in general she is awake and alert pleasant no distress. HEENT normocephalic atraumatic mucous membranes are moist. Breathing is unlabored no accessory muscle use good effort. Skin shows no rashes no pallor or icterus. Neuro shows no focal deficits. Weakness/deconditioningPT/OT eval and treat, hopefully she will qualify for some sort of rehab options this time. Certainly does not appear to be strong enough to be safe at home based on her recent history. Lung cancer with probable obstructive pneumonia related to cancerous massimproving after re-treatment with Levaquin. I do harbor concerns about whether or not this will be a recurring problem given the obstruction of the mass. Discussed the same with patientfor now we will treat for course of Levaquin, and have outpatient follow-up with thoracic surgery (although in later discussion with thoracic, they felt that unfortunately it is essentially all tumor and there is not much of anything that can be offered). Would also ask at SNF that she be followed closely and treated promptly for any signs or symptoms of new/recurrent pneumonia. Dispositionsafe/stable for SNF with rehab emphasis Otherwise as above. Resident Activity Tracking Resident Involvement: Resident Care Provided Care Provided: Adult Hospital Medicine
--- NOTE | 2019-06-27 18:08 | Billing Data ---
Date of Service June 27, 2019 Coding Level of Care Code D/C Day Management <30 mins
== END 2019-06-27 13:03 | DRG 180 ==
LOC: ED 09:04 → 4W 10:18 → SUATTDRO 10:18 → 4W 11:16